=== PATIENT | male | born 1945 | race Hispanic/Latino ===

== ENCOUNTER 2017-11-07 16:48 | Observation (INO) | payer OTHER, MEDICARE ==
[2017-11-07 17:28] LABS: BASOPHILS % (AUTO) 1.4 % (0.0-5.0); EOSINOPHILS % (AUTO) 5.3 % (0.0-8.0); HEMATOCRIT 23.3 % (42-54); LYMPHOCYTES % (AUTO) 20.5 % (21.0-51.0); MEAN CORPUSCULAR HEMOGLOBIN 21.6 pg (27.0-33.0); MEAN CORPUSCULAR HGB CONC 31.1 g/dL (32.0-36.0); MEAN CORPUSCULAR VOLUME 69.5 fL (79-99); MONOCYTES % (AUTO) 10.2 % (3.0-13.0); NEUTROPHILS % (AUTO) 62.6 % (40.0-77.0); NUCLEATED RED BLOOD CELLS 0.1 % (0.0-0.19); PLATELET COUNT (AUTO) 25 K/uL (130-400); RED BLOOD CELL COUNT(AUTO) 3.36 MIL/uL (4.50-6.20); RED CELL DISTRIBUTION WIDTH 18.8 % (11.0-15.5); WHITE BLOOD COUNT (AUTO) 2.2 K/uL (4.8-10.8)
[2017-11-07 17:44] LABS: INR 1.06 (0.85-1.15); PARTIAL THROMBOPLASTIN TIME 22.5 SEC (26.3-35.5); PROTHROMBIN TIME 11.1 SEC (9.6-11.6)
[2017-11-07 17:45] LABS: ALBUMIN 2.9 g/dL (3.5-5.0); BILIRUBIN,TOTAL 0.4 mg/dL (0.2-1.0); CREATININE 1.6 mg/dL (0.5-1.5); TOTAL PROTEIN, SERUM 7.9 g/dL (6.0-8.3)
[2017-11-07 17:47] LABS: POTASSIUM 6.1 mmol/L (3.5-5.1)
[2017-11-07 18:21] LABS: BAND NEUTROPHILS % (MANUAL) 1 % (0-2); BASOPHILS % (MANUAL) 1 % (0-2); EOSINOPHILS % (MANUAL) 5 % (1-6); LYMPHOCYTES % (MANUAL) 22 % (22-44); MAN.DIFF COMMENT-IMPRESSION MANUAL DIFFERENTIAL; MONOCYTES % (MANUAL) 10 % (2-9); SEGMENTED NEUTROPHILS % 61 % (40-70)
[2017-11-07 18:22] LABS: PLATELET MORPHOLOGY COMMENT PLT CLUMPS PRESENT
[2017-11-07] MEDS ORDERED: SODIUM POLYSTYRENE SULFONATE 15 GM/60 ML ML ONE (18:31)
[2017-11-07] MEDS ORDERED: CALCIUM GLUCONATE 1 GM/10 ML VIAL IV ONE (18:31)
[2017-11-07] MEDS ORDERED: INSULIN HUMULIN R 100 UNIT/ML 3ML ONE (18:32)
[2017-11-07] MEDS ORDERED: SODIUM CHLORIDE 0.9% 50 ML IV ONE (18:34)
[2017-11-07 21:00] VITALS: BP 148/89
[2017-11-07 21:05] VITALS: BP 148/89
[2017-11-07] MEDS ORDERED: HYDRALAZINE HCL 20 MG/ML VIAL IV PRN (23:15)
[2017-11-07] MEDS ORDERED: LACTULOSE 20 GM/30 ML UDCUP PO PRN (23:15)
[2017-11-07] MEDS ORDERED: ONDANSETRON HCL 4 MG/2 ML VIAL IV PRN (23:15)
[2017-11-07 23:20] VITALS: BP 162/96
[2017-11-08 00:02] VITALS: BP 154/96
[2017-11-08] MEDS ORDERED: SODIUM POLYSTYRENE SULFONATE 15 GM/60 ML ML PO SCH (00:30)
[2017-11-08] MEDS ORDERED: SODIUM POLYSTYRENE SULFONATE 15 GM/60 ML ML ONE (00:37)
[2017-11-08 03:45] VITALS: BP 139/74
[2017-11-08 04:01] LABS: HEMATOCRIT 22.1 % (42-54); MEAN CORPUSCULAR HEMOGLOBIN 22.3 pg (27.0-33.0); MEAN CORPUSCULAR VOLUME 69.7 fL (79-99); PLATELET COUNT (AUTO) 24 K/uL (130-400); RED BLOOD CELL COUNT(AUTO) 3.17 MIL/uL (4.50-6.20); RED CELL DISTRIBUTION WIDTH 18.9 % (11.0-15.5)
[2017-11-08 04:10] LABS: CREATININE 1.4 mg/dL (0.5-1.5); POTASSIUM 4.8 mmol/L (3.5-5.1)
[2017-11-08 07:29] LABS: HEMATOCRIT 21.8 % (42-54); MEAN CORPUSCULAR HEMOGLOBIN 22.2 pg (27.0-33.0); MEAN CORPUSCULAR HGB CONC 31.7 g/dL (32.0-36.0); NUCLEATED RED BLOOD CELLS 0.1 % (0.0-0.19); RED BLOOD CELL COUNT(AUTO) 3.12 MIL/uL (4.50-6.20); WHITE BLOOD COUNT (AUTO) 2.1 K/uL (4.8-10.8)
[2017-11-08] MEDS ORDERED: INSULIN HUMULIN R 100 UNIT/ML 3ML SQ SCH (07:30)
[2017-11-08] MEDS ORDERED: COMPOUND IV MISC 1 EACH IVSOLN MISC PRN (08:00)
[2017-11-08 08:11] VITALS: BP 145/96
[2017-11-08] MEDS ORDERED: LACTULOSE 20 GM/30 ML UDCUP PO SCH (08:30)
[2017-11-08] MEDS ORDERED: FLUT16H NASAL (08:34)
[2017-11-08] MEDS ORDERED: FOLI1TAB15 PO (08:34)
[2017-11-08] MEDS ORDERED: IRON150C5 PO (08:34)
[2017-11-08] MEDS ORDERED: PROP20TA7 PO (08:34)
[2017-11-08] MEDS ORDERED: PANT40TA25 PO (08:34)
[2017-11-08] MEDS ORDERED: LINA1TAB5 PO (08:34)
[2017-11-08] MEDS ORDERED: LACT10SO32 PO (08:34)
[2017-11-08] MEDS ORDERED: FURO20TA4 PO (08:34)
[2017-11-08] MEDS ORDERED: IPRA3AMP4 IH (08:34)
[2017-11-08 08:56] LABS: PLATELET COUNT (AUTO) 60 K/uL (130-400)
[2017-11-08] MEDS ORDERED: FOLIC ACID 1 MG TABLET PO SCH (09:00)
[2017-11-08] MEDS ORDERED: LINAGLIPTIN 5 MG TABLET PO SCH (09:00)
[2017-11-08] MEDS ORDERED: PROPRANOLOL HCL 20 MG TAB PO SCH (09:00)
[2017-11-08] MEDS ORDERED: IRON SUCROSE COMPLEX 100 MG in SODIUM CHLORIDE 0.9% 50 ML IV SCH (09:00)
[2017-11-08] MEDS ORDERED: PANTOPRAZOLE SODIUM 40 MG TABLET.DR PO SCH ×2 (09:00)
[2017-11-08] MEDS ORDERED: FLUTICASONE PROPIONATE 50MCG/SPRAY 16 GM BOTTLE NS SCH (09:00)
[2017-11-08] MEDS ORDERED: IRON POLYSACCHARIDES COMPLEX 150 MG CAPSULE PO SCH (09:00)
[2017-11-08] MEDS ORDERED: FUROSEMIDE 20 MG TABLET PO SCH (09:00)
[2017-11-08] MEDS ORDERED: METFORMIN HCL 500 MG TABLET PO SCH (09:00)
[2017-11-08] MEDS ORDERED: SODIUM CHLORIDE 0.9% 250 ML IV ONE (11:45)
[2017-12-31] MEDS ORDERED: FURO20TA4 PO (12:43)
== END 2017-11-08 16:30 | disposition home or self-care (01) ==
LOC: EDH 16:48 → EDHIP 18:50 → 3AH 21:04
PROVIDERS: ADMIT Internal Medicine; ATTEND Internal Medicine
DX: E87.5 Hyperkalemia (principal); E78.5 Hyperlipidemia, unspecified; K74.60 Unspecified cirrhosis of liver; D69.6 Thrombocytopenia, unspecified; D61.818 Other pancytopenia; I12.9 Hypertensive chronic kidney disease with stage 1 through stage 4 chronic kidney disease, or unspecified chronic kidney disease; E11.22 Type 2 diabetes mellitus with diabetic chronic kidney disease; N18.9 Chronic kidney disease, unspecified; H54.8 Legal blindness, as defined in USA
CPT/HCPCS: 36415 ×2; 36430; 80048; 80053; 82948 ×4; 84132; 85007; 85025; 85027 ×2; 85610; 85730; 86850; 86900; 86901; 86922; 93005; 96374; 99285; G0378 ×22; J0610; J1756; J1815; J7030; P9016

== ENCOUNTER 2017-12-09 05:58 | Day surgery (SDC) | payer OTHER, MEDICARE ==
[~2017-12-09] VITALS: Ht 170.2 cm; Wt 104.4 kg
[~2017-12-09 05:58] MED LIST: FLUT16H NASAL; FOLI1TAB15 PO; IPRA3AMP24 IH; IRON150C5 PO; LACT10SO32 PO; LINA1TAB5 PO; PANT40TA25 PO; PROP20TA7 PO
[2017-12-09 06:03] VITALS: BP 147/77
[2017-12-09] MEDS ORDERED: SODIUM CHLORIDE 0.9% 1000ML 1,000 ML IV ONE (06:46)
[2017-12-09] MEDS ORDERED: LIDOCAINE HCL 2% 20ML ONE (07:32)
[2017-12-09] MEDS ORDERED: GLYCOPYRROLATE 0.2 MG/ML 5 ML VIAL ONE (07:32)
[2017-12-09] MEDS ORDERED: FENTANYL CITRATE PF 50 MCG/1 ML 2ML VIAL ONE (07:32)
[2017-12-09] MEDS ORDERED: PROPOFOL 10 MG/ML 20ML VIAL IV ONE ×2 (07:32→08:27)
[2017-12-09 07:45] LABS: BASOPHILS % (AUTO) 1.1 % (0.0-5.0); HEMATOCRIT 23.7 % (42-54); LYMPHOCYTES % (AUTO) 21.6 % (21.0-51.0); MEAN CORPUSCULAR HEMOGLOBIN 22.8 pg (27.0-33.0); MEAN CORPUSCULAR HGB CONC 31.3 g/dL (32.0-36.0); MEAN CORPUSCULAR VOLUME 72.9 fL (79-99); MONOCYTES % (AUTO) 11.8 % (3.0-13.0); NEUTROPHILS % (AUTO) 58.5 % (40.0-77.0); PLATELET COUNT (AUTO) 43 K/uL (130-400); RED BLOOD CELL COUNT(AUTO) 3.25 MIL/uL (4.50-6.20); RED CELL DISTRIBUTION WIDTH 21.4 % (11.0-15.5)
[2017-12-09] MEDS ORDERED: PHENYLEPHRINE HCL 10 MG/ML 1ML VIAL IV ONE (08:41)
[2017-12-09 08:47] VITALS: BP 99/49
[2017-12-31] MEDS ORDERED: FURO20TA4 PO (12:43)
== END 2017-12-09 09:25 | disposition home or self-care (01) ==
LOC: ENDO 05:58 → DAH 05:58 → ENDO 09:25
PROVIDERS: ATTEND Internal Medicine Gastroenterology
DX: Z09 Encounter for follow-up examination after completed treatment for conditions other than malignant neoplasm (principal); K57.30 Diverticulosis of large intestine without perforation or abscess without bleeding; D64.89 Other specified anemias; D69.6 Thrombocytopenia, unspecified; N28.9 Disorder of kidney and ureter, unspecified; E11.9 Type 2 diabetes mellitus without complications; Z86.010 Personal history of colon polyps; Z87.19 Personal history of other diseases of the digestive system; Z68.41 Body mass index [BMI] 40.0-44.9, adult
CPT/HCPCS: 45378; 36415; 82948 ×2; 85025; 93005; A4606; J2370; J2704 ×2; J3010; J3490 ×2; J7030

== ENCOUNTER 2018-01-01 06:40 | Day surgery (SDC) | payer OTHER, MEDICARE ==
[~2018-01-01] VITALS: Ht 170.2 cm; Wt 107.4 kg
[~2018-01-01 06:40] MED LIST changes: +FURO20TA4 PO
[2018-01-01 07:10] VITALS: BP 143/81
[2018-01-01] MEDS ORDERED: SODIUM CHLORIDE 0.9% 1000ML 1,000 ML IV ONE (07:36)
[2018-01-01 08:08] VITALS: BP 115/57
== END 2018-01-01 08:50 | disposition home or self-care (01) ==
LOC: ENDO 06:40 → DAH 06:40 → ENDO 08:50
PROVIDERS: ATTEND Internal Medicine Gastroenterology
DX: I85.00 Esophageal varices without bleeding (principal); K76.6 Portal hypertension; K31.89 Other diseases of stomach and duodenum; D50.9 Iron deficiency anemia, unspecified; Z68.41 Body mass index [BMI] 40.0-44.9, adult; K70.30 Alcoholic cirrhosis of liver without ascites; Z85.038 Personal history of other malignant neoplasm of large intestine; E11.22 Type 2 diabetes mellitus with diabetic chronic kidney disease; E11.39 Type 2 diabetes mellitus with other diabetic ophthalmic complication; N18.9 Chronic kidney disease, unspecified; H40.9 Unspecified glaucoma; Z79.899 Other long term (current) drug therapy; Z79.84 Long term (current) use of oral hypoglycemic drugs
CPT/HCPCS: 43235; 82948 ×2; A4606; J7030

== ENCOUNTER 2020-08-06 14:14 | Inpatient (IN) | payer OTHER, MEDICARE ==
[~2020-08-06] VITALS: Ht 167.6 cm; Wt 95.4 kg
[~2020-08-06 14:14] MED LIST changes: -PANT40TA25 PO; +PANT40TA54 PO
[2020-08-06 15:06] LABS: BASOPHILS % (AUTO) 0.4 % (0.0-5.0); EOSINOPHILS % (AUTO) 8.1 % (0.0-8.0); LYMPHOCYTES % (AUTO) 14.5 % (21.0-51.0); MEAN CORPUSCULAR HEMOGLOBIN 25.2 pg (27.0-33.0); MEAN CORPUSCULAR HGB CONC 29.8 g/dL (32.0-36.0); MEAN CORPUSCULAR VOLUME 84.8 fL (79-99); MONOCYTES % (AUTO) 11.9 % (3.0-13.0); NEUTROPHILS % (AUTO) 64.7 % (40.0-77.0); PLATELET COUNT (AUTO) 75 K/uL (130-400); RED CELL DISTRIBUTION WIDTH 18.3 % (11.0-15.5); WHITE BLOOD COUNT (AUTO) 2.4 K/uL (4.8-10.8)
[2020-08-06 15:13] LABS: HEMATOCRIT 17.8 % (42-54)
[2020-08-06 15:14] LABS: CARBON DIOXIDE 18 mmol/L (21-32); CHLORIDE 114 mmol/L (101-111); CREATININE 2.8 mg/dL (0.5-1.5); GLOMERULAR FILTR. RATE CALC 24 mL/min (>60); GLUCOSE,RANDOM 162 mg/dL (70-105); POTASSIUM 5.5 mmol/L (3.5-5.1); SODIUM SERUM 143 mmol/L (136-145); UREA NITROGEN, BLOOD 31 mg/dL (7-18)
[2020-08-06 15:15] LABS: INR 1.07 (0.85-1.15); PARTIAL THROMBOPLASTIN TIME 25.4 SEC (26.3-35.5); PROTHROMBIN TIME 11.5 SEC (9.6-11.6)
[2020-08-06 15:19] LABS: ALANINE AMINOTRANSFERASE 14 U/L (12-78); ALBUMIN 2.9 g/dL (3.5-5.0); ALCOHOL, BLOOD < 3 mg/dL (0-10); ASPARTATE AMINOTRANSFERASE 25 U/L (10-37); BILIRUBIN,TOTAL 0.6 mg/dL (0.2-1.0); TOTAL PROTEIN, SERUM 7.6 g/dL (6.0-8.3)
[2020-08-06 15:28] LABS: B-TYPE NATRIURETIC PEPTIDE 377 pg/mL (0-100)
[2020-08-06 15:43] LABS: BAND NEUTROPHILS % (MANUAL) 5 % (0-2); EOSINOPHILS % (MANUAL) 6 % (1-6); LYMPHOCYTES % (MANUAL) 13 % (22-44); MONOCYTES % (MANUAL) 1 % (2-9); REACTIVE LYMPHOCYTES 1 % (0-0); SEGMENTED NEUTROPHILS % 74 % (40-70)
[2020-08-06 15:44] LABS: MAN.DIFF COMMENT-IMPRESSION MANUAL DIFFERENTIAL
[2020-08-06] MEDS ORDERED: ACETAMINOPHEN 325 MG TAB PO PRN (16:00)
[2020-08-06] MEDS ORDERED: ACETAMINOPHEN 650 MG SUPPOSITORY RC PRN (16:00)
[2020-08-06] MEDS ORDERED: LACTULOSE 20 GM/30 ML UDCUP PO PRN (16:00)
[2020-08-06 16:54] LABS: APPEARANCE,URINE Clear (CLEAR); BILIRUBIN,URINE Negative (NEGATIVE); COLOR,URINE Yellow (YELLOW); GLUCOSE, URINE (UA) Negative (NEGATIVE); KETONES,URINE Negative (NEGATIVE); LEUKOCYTE ESTERASE ,URINE Trace (NEGATIVE); NITRATE,URINE Negative (NEGATIVE); OCCULT BLOOD,URINE Negative (NEGATIVE); PROTEIN,URINE POS 2+ mg/dL (NEGATIVE)
[2020-08-06] MEDS: CEFTRIAXONE SODIUM 1 GM IVP SCH (17:00)
[2020-08-06 17:02] LABS: AMPHET/METH SCREEN,URINE NEGATIVE (NEGATIVE); BARBITURATE SCREEN, URINE NEGATIVE (NEGATIVE); BENZODIAZEPINES SCREEN,URINE NEGATIVE (NEGATIVE); CANNABINOID SCREEN,URINE NEGATIVE (NEGATIVE); COCAINE SCREEN,URINE NEGATIVE (NEGATIVE); OPIATE SCREEN,URINE NEGATIVE (NEGATIVE); PHENCYCLIDINE SCREEN,URINE NEGATIVE (NEGATIVE)
[2020-08-06 17:04] LABS: RBC,URINE 0-1 /HPF (0-1)
[2020-08-06 17:05] LABS: BACTERIA,URINE Rare /HPF (None Seen); SQUAMOUS EPITHELIAL CELL,UR Few /HPF (0-2)
[2020-08-06 17:48] LABS: HEMATOCRIT 17.6 % (42-54)
[2020-08-06 18:02] LABS: CREATINE KINASE, TOTAL 72 U/L (21-232); MYOGLOBIN 181 ng/mL (10-92); TROPONIN I < 0.04 ng/mL (0.00-0.06)
[2020-08-06 18:03] LABS: AMMONIA 108 umol/L (11-32)
[2020-08-06] MEDS: LACTULOSE 20 GM/30 ML UDCUP PO SCH (19:15)
[2020-08-06] MEDS ORDERED: MORPHINE SULFATE 2 MG/ML 1ML SYG ONE (19:37)
[2020-08-06 20:00] VITALS: BP 130/64
[2020-08-06] MEDS: SODIUM CHLORIDE 0.9% 1000ML 1,000 ML IV SCH (21:08)
[2020-08-06] MEDS ORDERED: SODIUM POLYSTYRENE SULFONATE 15 GM/60 ML ML PO SCH (21:55)
[2020-08-06 22:05] LABS: HEMATOCRIT 15.2 % (42-54)
[2020-08-06 22:14] LABS: CREATINE KINASE, TOTAL 62 U/L (21-232); MYOGLOBIN 210 ng/mL (10-92); TROPONIN I < 0.04 ng/mL (0.00-0.06)
[2020-08-06] MEDS ORDERED: PANTOPRAZOLE SODIUM 80 MG in SODIUM CHLORIDE 0.9% 100 ML IVP SCH (23:00)
[2020-08-06] MEDS ORDERED: PANT40TA PO (23:01)
[2020-08-06] MEDS ORDERED: ONDANSETRON HCL 4 MG/2 ML VIAL IVP PRN (23:15)
[2020-08-07] VITALS (12 sets, daily range): BP systolic 130–167; BP diastolic 31–90
[2020-08-07] MEDS: MORPHINE SULFATE 2 MG/ML 1ML SYG IVP PRN ×2 (00:13→03:46)
[2020-08-07] MEDS: LACTULOSE 20 GM/30 ML UDCUP PO SCH ×4 (00:13→20:44)
[2020-08-07] MEDS ORDERED: FUROSEMIDE 10 MG/ML 4ML VIAL IV SCH (02:00)
[2020-08-07] MEDS ORDERED: FUROSEMIDE 10 MG/ML 4ML VIAL ONE (03:44)
[2020-08-07] MEDS: SODIUM CHLORIDE 0.9% 1000ML 1,000 ML IV SCH ×2 (03:47→22:52)
[2020-08-07 05:29] LABS: MEAN CORPUSCULAR HGB CONC 32.7 g/dL (32.0-36.0); MEAN CORPUSCULAR VOLUME 85.6 fL (79-99); PLATELET COUNT (AUTO) 58 K/uL (130-400); RED BLOOD CELL COUNT(AUTO) 2.43 MIL/uL (4.50-6.20); RED CELL DISTRIBUTION WIDTH 17.2 % (11.0-15.5)
[2020-08-07 05:40] LABS: INR 1.09 (0.85-1.15); PROTHROMBIN TIME 11.7 SEC (9.6-11.6)
[2020-08-07 05:43] LABS: CARBON DIOXIDE 17 mmol/L (21-32); CHLORIDE 115 mmol/L (101-111); CREATINE KINASE, TOTAL 93 U/L (21-232); CREATININE 2.7 mg/dL (0.5-1.5); GLOMERULAR FILTR. RATE CALC 25 mL/min (>60); GLUCOSE,RANDOM 131 mg/dL (70-105); MYOGLOBIN 232 ng/mL (10-92); PHOSPHORUS 3.8 mg/dL (2.5-4.9); POTASSIUM 5.1 mmol/L (3.5-5.1); SODIUM SERUM 145 mmol/L (136-145); TROPONIN I < 0.04 ng/mL (0.00-0.06); UREA NITROGEN, BLOOD 31 mg/dL (7-18)
[2020-08-07 05:50] LABS: HEMATOCRIT 20.8 % (42-54)
[2020-08-07 06:07] LABS: AMMONIA 103 umol/L (11-32)
[2020-08-07 06:19] LABS: % IRON SATURATION 20.8 % (30-44)
[2020-08-07] MEDS: OCTREOTIDE ACETATE 1,250 MCG in SODIUM CHLORIDE 0.9% 250 ML IV SCH (09:28)
[2020-08-07] MEDS ORDERED: COMPOUND IV REFRIGERATED 1 EACH IVSOLN MISC PRN (09:30)
[2020-08-07] MEDS ORDERED: COMPOUND IV MISC 1 EACH IVSOLN MISC PRN (09:30)
[2020-08-07] MEDS ORDERED: ALBUMIN (HUMAN) 25% 100 ML IV PRN (10:15)
--- NOTE | 2020-08-07 11:08 | NUR ---
DC PLAN VISITED WITH PATIENT. PATIENT CONFUSED. BREATH SOUND AUDIBLE. DAUGHTER AT BEDSIDE ANSWERED QUESTIONS. PATIENT LIVES ALONE. DOES HAVE HELP AT HOME. SHE VISITS AND PATIENT HAS PROVIDER 4 1/2 HRS. 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 NURSE NOT AVAILABLE LET CONCERT OR LECTURE HALL MANAGER KNOW FOR SIGN. PER DAUGHTER FEELS PATIENT WOULD BE SAFE TO DISCHARGE HOME. Addendum: 08/07/20 at 1113 by MONA MACIAS RN CM Amended: Links added.
--- NOTE | 2020-08-07 12:25 | NUR ---
U/S GD PARACENTESIS PROCEDURE PERFORMED BY DR Paulo COLEMAN. PUNCTURE SITE RLQ AND PATIENT TOLERATED PROCEDURE WELL. TOTAL REMOVED 5.2 LITERS OF CLOUDY YELLOW FLUID. END OF PROCEDURE AT 1215. CATHETER REMOVED AND DRESSING APPLIED. NO BLEEDING NOTED. REPORT GIVEN TO Paulo GAN RN AND PATIENT TRANSPORTED TO [facility] VIA BED AT 1230. AAO X3 WITH NO C/O PAIN. SPECIMEN SENT TO LAB. ALBUMIN 25% ORDERED PER [facility] PROTOCOL.
[2020-08-07] MEDS: FUROSEMIDE 10 MG/ML 2ML VIAL IV SCH ×2 (12:45→20:44)
[2020-08-07] MEDS ORDERED: PHARMACY COMMUNICATION MISC SCH (12:45)
--- NOTE | 2020-08-07 13:31 | NUR ---
DR. VARSHA DAWN MD PLANS FOR NO SURGERY AT THIS TIME DUE TO PATIENTS CURRENT MEDICAL STATUS
[2020-08-07 13:34] LABS: APPEARANCE BODY FLUID CLEAR (CLEAR); BODY FLUID WBC 367 /cu. mm.; COLOR,BODY FLUID YELLOW (LT YELLOW); SPECIMENTYPE,BODY FLUID ASCITES; TOTAL VOLUME,BODY FLUID 5200 mL
[2020-08-07 13:35] LABS: BODY FLUID RBC 825 /cu. mm.
[2020-08-07 13:53] LABS: BF LYMPHOCYTE 15 %; BF MESOTHELIAL 72 %; BF MONOCYTE 12 %
[2020-08-07] MEDS ORDERED: ALBUMIN (HUMAN) 25% 200 ML IV ONE (14:00)
[2020-08-07] MEDS ORDERED: THIAMINE HCL 100 MG/ML 2ML VIAL IVP SCH (14:00)
--- NOTE | 2020-08-07 14:45 | NUR ---
DR. BARKER ROUNDING ON PATIENT
--- NOTE | 2020-08-07 15:30 | NUR ---
ALBUMIN ASKED Edward TURNER NP IF ALBUMIN 25% 200ml ORDERED BY RADIOLOGIST POST-PARACENTESIS WOULD BE INDICATION SINCE PATIENT WILL RECEIVE TOTAL OF 4 UNITS OF PRBCS SINCE YESTERDAY. AWAITING REPLY.
--- NOTE | 2020-08-07 15:45 | NUR ---
REPAGED DR. OKEEFE
--- NOTE | 2020-08-07 16:08 | NUR ---
REPAGED DR. DAVID BLANCHARD STATED HE WAS ON HIS WAY TO SEE PATIENT
[2020-08-07] MEDS: PHARMACY COMMUNICATION MISC SCH (17:00)
[2020-08-07] MEDS: CEFTRIAXONE SODIUM 1 GM IVP SCH (17:06)
[2020-08-07] MEDS: FAMOTIDINE/PF 20 MG/2 ML VIAL IV SCH (20:44)
[2020-08-07 23:09] LABS: HEMATOCRIT 24.3 % (42-54)
--- NOTE | 2020-08-07 23:23 | NUR ---
SPOKE WITH NANCY PATEL HARDENING MACHINE OPERATOR, UPDATED ON NEW ORDERS FOR FFP TRANSFUSION PER YESY LOZA HARDENING MACHINE OPERATOR. INFORMED HER LAB IS REQUIRING CLARIFICATION D/T PATIENT'S CURRENT LABS. NEW ORDERS RECEIVED TO HOLD TRANSFUSION FOR NOW AND ORDER CBC WITH MANUAL DIFF FOR AM. ORDERS TO BE CARRIED OUT.
--- NOTE | 2020-08-07 23:25 | NUR ---
LAST H/H 7.8/24.3, PER STANDING ORDERS, PATIENT TO RECEIVE 1 UNIT OF PRBC IF HGB < 8.
[2020-08-07] MEDS ORDERED: SODIUM CHLORIDE 0.9% 250 ML IV ONE (23:53)
[2020-08-08] MEDS: MORPHINE SULFATE 2 MG/ML 1ML SYG IVP PRN ×2 (00:48→18:10)
[2020-08-08] MEDS: LACTULOSE 20 GM/30 ML UDCUP PO SCH ×5 (01:15→20:41)
[2020-08-08] MEDS: ENALAPRILAT DIHYDRATE 1.25MG/ML 1ML VIAL IV PRN ×2 (03:13→11:30)
--- NOTE | 2020-08-08 03:18 | NUR ---
1 UNIT OF PRBC COMPLETE WITH NO ADVERSE REACTIONS NOTED. BP ELEVATED AT 191/86, PRN ENALAPRIL ADMINISTERED. WILL CONT TO MONITOR CLOSELY. PATIENT REMAINS ASLEEP AFTER ADMINISTRATION OF MORPHINE 2 MG IVP FOR C/O PAIN TO LEFT ARM FRACTURE.
[2020-08-08 03:58] VITALS: BP 169/89
[2020-08-08 05:18] LABS: BASOPHILS % (AUTO) 0.7 % (0.0-5.0); LYMPHOCYTES % (AUTO) 11.4 % (21.0-51.0); MEAN CORPUSCULAR HEMOGLOBIN 28.5 pg (27.0-33.0); MEAN CORPUSCULAR HGB CONC 33.1 g/dL (32.0-36.0); MEAN CORPUSCULAR VOLUME 86.1 fL (79-99); MONOCYTES % (AUTO) 10.3 % (3.0-13.0); NEUTROPHILS % (AUTO) 73.2 % (40.0-77.0); PLATELET COUNT (AUTO) 54 K/uL (130-400); RED BLOOD CELL COUNT(AUTO) 3.02 MIL/uL (4.50-6.20); RED CELL DISTRIBUTION WIDTH 16.5 % (11.0-15.5); WHITE BLOOD COUNT (AUTO) 2.7 K/uL (4.8-10.8)
[2020-08-08 05:34] LABS: CREATININE 2.7 mg/dL (0.5-1.5); INR 1.15 (0.85-1.15); PROTHROMBIN TIME 12.4 SEC (9.6-11.6)
[2020-08-08 08:13] VITALS: BP 143/72
[2020-08-08] MEDS ORDERED: THIAMINE HCL 100 MG/ML 2ML VIAL IVP SCH (09:00)
[2020-08-08] MEDS ORDERED: M.V.I. IV [ADULT] 10 ML, FOLIC ACID 1 MG, THIAMINE HCL 100 MG in SODIUM CHLORIDE 0.9% 1... IV SCH (09:00)
[2020-08-08] MEDS: FUROSEMIDE 10 MG/ML 2ML VIAL IV SCH ×2 (09:40→20:42)
[2020-08-08] MEDS: PHARMACY COMMUNICATION MISC SCH (09:45)
[2020-08-08] MEDS ORDERED: PHARMACY COMMUNICATION MISC SCH (10:45)
[2020-08-08] MEDS: SODIUM CHLORIDE 0.9% IV SCH (11:23)
[2020-08-08] MEDS: FOLIC ACID IV SCH (11:23)
[2020-08-08] MEDS: THIAMINE HCL IV SCH (11:23)
[2020-08-08] MEDS: MULTIVITAMIN TABLET PO SCH (11:23)
[2020-08-08 11:35] VITALS: BP 185/97
[2020-08-08 16:33] VITALS: BP 156/87
[2020-08-08] MEDS: CEFTRIAXONE SODIUM 1 GM IVP SCH (16:51)
[2020-08-08 18:51] LABS: HEMATOCRIT 26.7 % (42-54)
[2020-08-08] MEDS: SODIUM CHLORIDE 0.9% 1000ML 1,000 ML IV SCH (18:52)
[2020-08-08 19:53] VITALS: BP 168/84
[2020-08-08] MEDS: RIFAXIMIN 200 MG TABLET PO SCH (20:41)
[2020-08-08] MEDS: FAMOTIDINE/PF 20 MG/2 ML VIAL IV SCH (20:42)
[2020-08-08] MEDS: MORPHINE SULFATE 4 MG/1ML SYG IVP PRN (22:31)
[2020-08-09] VITALS (24 sets, daily range): BP systolic 111–182; BP diastolic 55–113
[2020-08-09] MEDS: PHARMACY COMMUNICATION MISC SCH ×3 (01:00→17:00)
[2020-08-09] MEDS: LACTULOSE 20 GM/30 ML UDCUP PO SCH ×6 (01:15→18:02)
[2020-08-09 05:54] LABS: BASOPHILS % (AUTO) 0.6 % (0.0-5.0); EOSINOPHILS % (AUTO) 5.9 % (0.0-8.0); HEMATOCRIT 27.3 % (42-54); LYMPHOCYTES % (AUTO) 10.3 % (21.0-51.0); MEAN CORPUSCULAR HEMOGLOBIN 27.7 pg (27.0-33.0); MEAN CORPUSCULAR HGB CONC 31.9 g/dL (32.0-36.0); MEAN CORPUSCULAR VOLUME 86.9 fL (79-99); MONOCYTES % (AUTO) 13.2 % (3.0-13.0); NEUTROPHILS % (AUTO) 69.7 % (40.0-77.0); PLATELET COUNT (AUTO) 31 K/uL (130-400); RED BLOOD CELL COUNT(AUTO) 3.14 MIL/uL (4.50-6.20); RED CELL DISTRIBUTION WIDTH 16.6 % (11.0-15.5); WHITE BLOOD COUNT (AUTO) 3.4 K/uL (4.8-10.8)
[2020-08-09 06:09] LABS: ALBUMIN 2.6 g/dL (3.5-5.0); BILIRUBIN,DIRECT 0.4 mg/dL (0.0-0.3); BILIRUBIN,TOTAL 0.9 mg/dL (0.2-1.0); CREATININE 2.7 mg/dL (0.5-1.5); MAGNESIUM 1.6 mg/dL (1.80-2.40); PHOSPHORUS 4.1 mg/dL (2.5-4.9)
[2020-08-09 06:20] LABS: POTASSIUM 3.8 mmol/L (3.5-5.1)
[2020-08-09] MEDS: RIFAXIMIN 200 MG TABLET PO SCH ×3 (09:00→21:42)
[2020-08-09] MEDS: FUROSEMIDE 10 MG/ML 2ML VIAL IV SCH ×2 (10:10→21:42)
[2020-08-09] MEDS ORDERED: PROPOFOL 10 MG/ML 20ML VIAL IV ONE ×2 (11:40→11:53)
[2020-08-09] MEDS ORDERED: SUCCINYLCHOLINE 200MG/10ML SYR ONE (11:40)
[2020-08-09] MEDS ORDERED: LIDOCAINE HCL 1% 20 ML VIAL ONE (11:40)
[2020-08-09] MEDS ORDERED: ATROPINE SULFATE 0.1 MG/ML 10 ML SYG IVP ONE (11:41)
[2020-08-09] MEDS ORDERED: GLYCOPYRROLATE 1 MG/5 ML SYRINGE ONE (11:41)
--- NOTE | 2020-08-09 12:07 | NUR ---
CM NOTE/DCP [facility] MET WITH PATIENT AND SIBLING, PAULINA, AT BEDSIDE REGARDING ORDER HH VS SNF. PER SIBLING, PATIENT PENDING ORTHOPEDIC SURGERY AND WANTS HIM TO GO TO SNF FOR PT AFTER, PATIENT AGREES. PER PATIENT, HAS BEEN AT [facility] BEFORE AND WOULD LIKE TO RETURN. JEFFRY COMPLETED FOR [facility]. WILL SEND CLINICAL PACKET AFTER SURGERY COMPLETED AND PT EVALUATION DONE. CM TO FOLLOW UP. PRIMARY NURSE, JEANE CHAMOROR, AWARE OF DCP.
[2020-08-09] MEDS: MAGNESIUM 2GM PREMIX 50ML 50 ML IV SCH (13:07)
[2020-08-09] MEDS: MULTIVITAMIN TABLET PO SCH (13:07)
[2020-08-09] MEDS: SODIUM CHLORIDE 0.9% 1000ML 1,000 ML IV SCH (14:52)
[2020-08-09] MEDS ORDERED: MAGNESIUM CITRATE 296 ML SOLUTION PO SCH (15:00)
[2020-08-09] MEDS ORDERED: PEG 3350/NA SULF,BICARB,CL/KCL 4000 ML SOLN PO SCH (16:00)
[2020-08-09] MEDS: CEFTRIAXONE SODIUM 1 GM IVP SCH (17:06)
[2020-08-09] MEDS: OCTREOTIDE ACETATE 1,250 MCG in SODIUM CHLORIDE 0.9% 250 ML IV SCH (18:04)
--- NOTE | 2020-08-09 19:36 | NUR ---
PATIENT RECEIVED IN BED, AGITATED AND TRYING TO GET OUT OF BED. PATIENT IS WEAK TO BLE, HAS A LEFT HUMERUS FRACTURE AND IS AT HIGH RISK FOR FALLS AND INJURY. POC INVOLVES COLONOSCOPY FOR TOMORROW WIT DR. OKEEFE. GI PREP HAS BEEN INITIATED AND PATIENT IS VERY ANXIOUS STATING HE NEED TO GET UP AND GO TO THE BATHROOM. HE IS PULLING AT LINES AND IS AT HIGH RISK FOR INJURY. I PAGED SHARRI PARSONS CUSTOMER EQUIPMENT ENGINEER TO UPDATE AND OBTAIN ORDERS. WILL AWAIT CALL BACK.
[2020-08-09] MEDS ORDERED: TRAZODONE HCL 50 MG TAB PO ONE (20:15)
[2020-08-09] MEDS: FAMOTIDINE/PF 20 MG/2 ML VIAL IV SCH (21:42)
[2020-08-09] MEDS ORDERED: TRAZODONE HCL 50 MG TAB ONE (21:49)
[2020-08-09 21:51] LABS: HEMATOCRIT 25.8 % (42-54)
[2020-08-10] MEDS: PHARMACY COMMUNICATION MISC SCH ×3 (01:00→17:00)
[2020-08-10] MEDS: LACTULOSE 20 GM/30 ML UDCUP PO SCH ×4 (01:15→20:21)
--- NOTE | 2020-08-10 01:31 | NUR ---
PATIENT CONTINUES AGITATED, PULLING AT LINES AND REMOVING MITTENS. HE DID NOT COMPLETE THE GOLYTELY, STATING HE DOES NOT LIKE IT. PT IS NPO, TAB WATER ENEMA TO BE DONE.
[2020-08-10 04:21] LABS: BASOPHILS % (AUTO) 0.2 % (0.0-5.0); EOSINOPHILS % (AUTO) 3.5 % (0.0-8.0); HEMATOCRIT 24.9 % (42-54); LYMPHOCYTES % (AUTO) 7.7 % (21.0-51.0); MEAN CORPUSCULAR HEMOGLOBIN 28.7 pg (27.0-33.0); MEAN CORPUSCULAR HGB CONC 32.5 g/dL (32.0-36.0); MEAN CORPUSCULAR VOLUME 88.3 fL (79-99); NEUTROPHILS % (AUTO) 76.4 % (40.0-77.0); PLATELET COUNT (AUTO) 32 K/uL (130-400); RED BLOOD CELL COUNT(AUTO) 2.82 MIL/uL (4.50-6.20); RED CELL DISTRIBUTION WIDTH 16.7 % (11.0-15.5)
[2020-08-10 04:25] VITALS: BP 178/83
[2020-08-10 04:33] LABS: ALBUMIN 2.6 g/dL (3.5-5.0); BILIRUBIN,TOTAL 0.7 mg/dL (0.2-1.0); CREATININE 2.8 mg/dL (0.5-1.5); MAGNESIUM 1.5 mg/dL (1.80-2.40); PHOSPHORUS 4.3 mg/dL (2.5-4.9); POTASSIUM 3.6 mmol/L (3.5-5.1); TOTAL PROTEIN, SERUM 6.9 g/dL (6.0-8.3)
--- NOTE | 2020-08-10 05:27 | NUR ---
TAB WATER ENEMA ADMINISTERED, PT TOLERATED WELL. OUTPUT WAS YELLOW WITH SEDIMENT NOTED, NO FORMED STOOL NOTED.
[2020-08-10 08:00] VITALS: BP 128/74
--- NOTE | 2020-08-10 08:00 | NUR ---
AM SHIFT ASSESSMENT; SITTER AT SIDE, PT CONFUSED, TRYING TO CLIMB OUT OF BED. NPO FOR A [facility]. COLONOSCOPY TODAY. CONSENT SIGNED AND IN CHART
[2020-08-10] MEDS: FUROSEMIDE 10 MG/ML 2ML VIAL IV SCH ×2 (10:41→20:21)
[2020-08-10] MEDS: MULTIVITAMIN TABLET PO SCH (10:41)
[2020-08-10] MEDS: RIFAXIMIN 200 MG TABLET PO SCH ×3 (10:41→20:21)
[2020-08-10] MEDS: PANTOPRAZOLE SODIUM 40 MG TABLET.DR PO SCH (10:43)
[2020-08-10] MEDS: SODIUM CHLORIDE 0.9% 1000ML 1,000 ML IV SCH (10:52)
[2020-08-10 11:36] VITALS: BP 148/86
[2020-08-10] MEDS: THIAMINE HCL IV SCH (12:39)
[2020-08-10] MEDS: SODIUM CHLORIDE 0.9% IV SCH (12:39)
[2020-08-10] MEDS: FOLIC ACID IV SCH (12:39)
--- NOTE | 2020-08-10 13:00 | NUR ---
RETURNED FROM GI LAB, COLONOSCOPY ABORTED. PT. WAS NOT CLEAN. REPEAT PREP AND RESCHEDULE FOR AM.
--- NOTE | 2020-08-10 15:35 | NUR ---
CM NOTE/APS CALL RECEIVED FROM LANA LAM [phone]- Addendum: 08/10/20 at 1537 by SILVINA HINSON RN CM CM NOTE/APS CALL RECEIVED FROM LANA LAM [phone] STATING PATIENT HAS OPEN CASE. INFORMED DC PLAN. PER LANA, WILL FOLLOW UP AT LATER TIME.
[2020-08-10 16:00] VITALS: BP 156/77
[2020-08-10] MEDS ORDERED: MAGNESIUM CITRATE 296 ML SOLUTION PO SCH (17:00)
[2020-08-10] MEDS ORDERED: PEG 3350/NA SULF,BICARB,CL/KCL 4000 ML SOLN PO SCH (17:00)
[2020-08-10] MEDS: CEFTRIAXONE SODIUM 1 GM IVP SCH (17:12)
--- NOTE | 2020-08-10 18:04 | NUR ---
STARTED ON COLONOSCOPY PREP NOW.
[2020-08-10 19:42] VITALS: BP 135/72
[2020-08-10] MEDS: FAMOTIDINE/PF 20 MG/2 ML VIAL IV SCH (20:21)
[2020-08-10] MEDS: MORPHINE SULFATE 4 MG/1ML SYG IVP PRN ×2 (20:22→23:06)
[2020-08-10] MEDS ORDERED: LACTULOSE 20 GM/30 ML UDCUP PO SCH (21:00)
[2020-08-10 22:51] VITALS: BP 152/71
[2020-08-10] MEDS: MAGNESIUM 2GM PREMIX 50ML 50 ML IV SCH (23:13)
[2020-08-11] MEDS: PHARMACY COMMUNICATION MISC SCH ×3 (01:00→17:00)
[2020-08-11] MEDS: MORPHINE SULFATE 4 MG/1ML SYG IVP PRN (03:13)
[2020-08-11 04:00] VITALS: BP 168/98
[2020-08-11] MEDS: SODIUM CHLORIDE 0.9% 1000ML 1,000 ML IV SCH (06:26)
[2020-08-11] MEDS: PANTOPRAZOLE SODIUM 40 MG TABLET.DR PO SCH (07:30)
[2020-08-11 07:32] VITALS: BP 152/83
[2020-08-11] MEDS: RIFAXIMIN 200 MG TABLET PO SCH ×3 (09:00→21:40)
[2020-08-11] MEDS: LACTULOSE 20 GM/30 ML UDCUP PO SCH ×2 (09:00→21:40)
[2020-08-11 12:42] VITALS: BP 148/66
[2020-08-11] MEDS: MULTIVITAMIN TABLET PO SCH (15:00)
[2020-08-11] MEDS: FUROSEMIDE 10 MG/ML 2ML VIAL IV SCH ×2 (15:02→21:40)
[2020-08-11 15:44] VITALS: BP 141/80
[2020-08-11 19:39] VITALS: BP 140/70
[2020-08-11] MEDS: FAMOTIDINE/PF 20 MG/2 ML VIAL IV SCH (21:40)
[2020-08-11] MEDS: CEFTRIAXONE SODIUM 1 GM IVP SCH (21:41)
[2020-08-11 23:38] VITALS: BP 162/69
[2020-08-12] VITALS (25 sets, daily range): BP systolic 97–155; BP diastolic 45–88
[2020-08-12] MEDS: PHARMACY COMMUNICATION MISC SCH ×3 (01:00→17:00)
[2020-08-12] MEDS: SODIUM CHLORIDE 0.9% 1000ML 1,000 ML IV SCH ×2 (02:52→22:52)
[2020-08-12 05:47] LABS: BASOPHILS % (AUTO) 0.6 % (0.0-5.0); EOSINOPHILS % (AUTO) 9.7 % (0.0-8.0); HEMATOCRIT 26.7 % (42-54); MEAN CORPUSCULAR HEMOGLOBIN 27.3 pg (27.0-33.0); MEAN CORPUSCULAR HGB CONC 31.8 g/dL (32.0-36.0); MEAN CORPUSCULAR VOLUME 85.9 fL (79-99); NEUTROPHILS % (AUTO) 65.4 % (40.0-77.0); PLATELET COUNT (AUTO) 53 K/uL (130-400); RED BLOOD CELL COUNT(AUTO) 3.11 MIL/uL (4.50-6.20); RED CELL DISTRIBUTION WIDTH 17.3 % (11.0-15.5); WHITE BLOOD COUNT (AUTO) 3.1 K/uL (4.8-10.8)
[2020-08-12] MEDS: PANTOPRAZOLE SODIUM 40 MG TABLET.DR PO SCH ×2 (07:30→15:26)
[2020-08-12] MEDS: THIAMINE HCL IV SCH (09:00)
[2020-08-12] MEDS: [UNRECOGNIZED DRUG - OTHER] IV SCH (09:00)
[2020-08-12] MEDS: M V I IV SCH (09:00)
[2020-08-12] MEDS: FOLIC ACID IV SCH (09:00)
[2020-08-12] MEDS ORDERED: PROPOFOL 10 MG/ML 20ML VIAL IV ONE (13:14)
[2020-08-12] MEDS ORDERED: ALBUMIN (HUMAN) 25% 100 ML IV SCH (14:00)
[2020-08-12] MEDS ORDERED: PHARMACY COMMUNICATION MISC SCH (14:30)
[2020-08-12] MEDS: FUROSEMIDE 10 MG/ML 2ML VIAL IV SCH ×2 (15:24→22:10)
[2020-08-12] MEDS: LACTULOSE 20 GM/30 ML UDCUP PO SCH ×2 (15:24→22:10)
[2020-08-12] MEDS: MULTIVITAMIN TABLET PO SCH (15:25)
[2020-08-12] MEDS: RIFAXIMIN 200 MG TABLET PO SCH ×2 (15:30→22:31)
[2020-08-12] MEDS: CEFTRIAXONE SODIUM 1 GM IVP SCH (16:35)
[2020-08-12] MEDS ORDERED: ALBUMIN (HUMAN) 25% 200 ML IV SCH (19:30)
[2020-08-12] MEDS: FAMOTIDINE/PF 20 MG/2 ML VIAL IV SCH (22:10)
[2020-08-12] MEDS: HYDROCORTISONE 25 MG SUPPOSITORY PR SCH (22:10)
[2020-08-13] MEDS: PHARMACY COMMUNICATION MISC SCH ×3 (01:00→17:00)
[2020-08-13 04:00] VITALS: BP 168/88
[2020-08-13 06:29] LABS: HEMATOCRIT 24.8 % (42-54); MEAN CORPUSCULAR HEMOGLOBIN 28.6 pg (27.0-33.0); MEAN CORPUSCULAR HGB CONC 32.3 g/dL (32.0-36.0); MEAN CORPUSCULAR VOLUME 88.6 fL (79-99); PLATELET COUNT (AUTO) 49 K/uL (130-400); RED CELL DISTRIBUTION WIDTH 17.7 % (11.0-15.5); WHITE BLOOD COUNT (AUTO) 2.8 K/uL (4.8-10.8)
[2020-08-13 06:43] LABS: ALBUMIN 2.6 g/dL (3.5-5.0); BILIRUBIN,TOTAL 0.7 mg/dL (0.2-1.0); CREATININE 2.5 mg/dL (0.5-1.5); TOTAL PROTEIN, SERUM 6.6 g/dL (6.0-8.3)
[2020-08-13 06:48] LABS: POTASSIUM 2.8 mmol/L (3.5-5.1)
[2020-08-13] MEDS: PANTOPRAZOLE SODIUM 40 MG TABLET.DR PO SCH (07:30)
[2020-08-13 08:34] VITALS: BP 167/84
[2020-08-13 08:50] LABS: EOSINOPHILS % (MANUAL) 4 % (1-6); LYMPHOCYTES % (MANUAL) 4 % (22-44); MONOCYTES % (MANUAL) 12 % (2-9); REACTIVE LYMPHOCYTES 8 % (0-0); SEGMENTED NEUTROPHILS % 72 % (40-70)
[2020-08-13 08:51] LABS: PLATELET MORPHOLOGY COMMENT MARKED DECREASE
[2020-08-13] MEDS: [UNRECOGNIZED DRUG - OTHER] IV SCH (09:00)
[2020-08-13] MEDS: M V I IV SCH (09:00)
[2020-08-13] MEDS: OCTREOTIDE ACETATE 100 MCG/ML AMP SQ SCH (09:00)
[2020-08-13] MEDS: THIAMINE HCL IV SCH (09:00)
[2020-08-13] MEDS: FOLIC ACID IV SCH (09:00)
[2020-08-13] MEDS: FUROSEMIDE 10 MG/ML 2ML VIAL IV SCH ×2 (09:06→22:14)
[2020-08-13] MEDS: RIFAXIMIN 200 MG TABLET PO SCH ×3 (09:16→22:16)
[2020-08-13] MEDS: HYDROCORTISONE 25 MG SUPPOSITORY PR SCH ×2 (09:16→22:16)
[2020-08-13] MEDS: MULTIVITAMIN TABLET PO SCH (09:16)
[2020-08-13] MEDS: LACTULOSE 20 GM/30 ML UDCUP PO SCH ×2 (09:16→22:16)
[2020-08-13 11:00] VITALS: BP 162/71
[2020-08-13] MEDS: POTASSIUM CHLORIDE 10% ELIXIR 20 MEQ/15 ML UDCUP PO SCH ×2 (13:23→22:15)
[2020-08-13] MEDS: HYDROMORPHONE HCL 0.5 MG/0.5 ML ML IVP PRN (13:29)
[2020-08-13] MEDS: CEFTRIAXONE SODIUM 1 GM IVP SCH (17:26)
[2020-08-13 18:47] VITALS: BP 158/88
[2020-08-13 20:00] VITALS: BP 155/75
[2020-08-13] MEDS: FAMOTIDINE/PF 20 MG/2 ML VIAL IV SCH (22:14)
[2020-08-14] VITALS (16 sets, daily range): BP systolic 150–206; BP diastolic 61–98
[2020-08-14] MEDS: MULTIVITAMIN TABLET PO SCH (09:23)
[2020-08-14] MEDS: RIFAXIMIN 200 MG TABLET PO SCH ×3 (09:23→21:26)
[2020-08-14] MEDS: HYDROCORTISONE 25 MG SUPPOSITORY PR SCH ×2 (09:24→21:26)
[2020-08-14] MEDS: LACTULOSE 20 GM/30 ML UDCUP PO SCH ×2 (09:24→21:26)
[2020-08-14] MEDS: OCTREOTIDE ACETATE 100 MCG/ML AMP SQ SCH (09:25)
[2020-08-14 10:19] LABS: CREATININE 2.4 mg/dL (0.5-1.5); POTASSIUM 3.1 mmol/L (3.5-5.1)
[2020-08-14] MEDS ORDERED: POTASSIUM CHLORIDE 20 MEQ/100 ML BAG IV SCH (11:45)
[2020-08-14] MEDS: [UNRECOGNIZED DRUG - OTHER] IV SCH (12:20)
[2020-08-14] MEDS: FOLIC ACID IV SCH (12:20)
[2020-08-14] MEDS: THIAMINE HCL IV SCH (12:20)
[2020-08-14] MEDS: M V I IV SCH (12:20)
[2020-08-14] MEDS ORDERED: FENTANYL CITRATE PF 50 MCG/1 ML 2ML VIAL ONE (13:56)
[2020-08-14] MEDS ORDERED: LIDOCAINE HCL 1% 10 ML VIAL ONE (14:31)
[2020-08-14] MEDS: SODIUM CHLORIDE 0.9% 1000ML 1,000 ML IV SCH (14:52)
--- NOTE | 2020-08-14 15:00 | NUR ---
CT GD RT ILIAC BONE MARROW BX ASPIRATION PROCEDURE PERFORMED BY DR Melva NGO. PUNCTURE SITE RT BUTTOCK AND PATIENT TOLERATED PROCEDURE WELL. SPECIMEN X 6 COLLECTED AND SENT TO LAB. END OF PROCEDURE AT 1425. BIOPSY NEEDLE REMOVED AND DRESSING APPLIED. NO BLEEDING NOTED. REPORT GIVEN TO Niels CORCORAN RN AND PATIENT TRANSPORTED TO [facility] VIA BED AT 1500. AAO X3 WITH NO C/O PAIN.
--- NOTE | 2020-08-14 16:47 | NUR ---
CM NOTE MET WITH PATIENT AND SIBLING AT BEDSIDE. NOTED INCREASE CONFUSION ON PATIENT AND NOW ON 1:1. PER SIBLING, STILL WANTS PATIENT TO ATTEND [facility] FOR PHYSICAL THERAPY. POSSIBLE ORTHOPEDIC SURGERY PENDING ORDERS FROM DR. MADDOX. CM TO FOLLOW UP.
--- NOTE | 2020-08-14 16:50 | NUR ---
RD NOTIFICATION Pt admitted due to s/p fall with fracture. RD screen due to LOS x 8 days Pt has hx of liver cirrhosis with current ETOH use. Pt has hx of noncompliance. Pt is s/p: - 1 unit of plt transfusion (08/12/20) - EGD with large esophageal varices and clipping (08/09/20) - Ascites removal of 5.2 L of fluid. (08/07/20) - Colonoscopy (08/12/20) Pt is pending bone marrow biopsy. Pt is currently on a FLD diet with a PO consumption of 75-100% RD RECOMMENDATION: Ensure BID- monitor tolerance, increase as tolerated. When medically feasible to advance diet, consider a general heart healthy diet (2 gm NA), with a renal non-HD diet, and GI soft modifier. Monitor tolerance to diet and any active bleeding due to esophageal varices. Monitor PO intake Continue with vitamin supplementation as medically feasible LABS: WBC 2.8, NA 145, K 3.1, CL 112, BUN 28, CREAT 2.4, GFR 28, BG 186, TOT CA 6.9, ALB 2.6, TOT PRO 6.6, IRON 89, TIBC 426 LBM: 08/13/20 Addendum: 08/14/20 at [address] Amended: Links added.
[2020-08-14] MEDS: CEFTRIAXONE SODIUM 1 GM IVP SCH (17:36)
[2020-08-14] MEDS ORDERED: LIDOCAINE HCL-MPF 1% 2ML VIAL IV PRN (20:15)
[2020-08-14] MEDS ORDERED: POTASSIUM CHLORIDE 20 MEQ ERTAB PO PRN (20:15)
[2020-08-14] MEDS ORDERED: POTASSIUM CHLORIDE 10% ELIXIR 20 MEQ/15 ML UDCUP PO PRN (20:15)
[2020-08-14] MEDS: POTASSIUM CHLORIDE 20MEQ/100ML 100 ML IV PRN (21:26)
[2020-08-14] MEDS: FAMOTIDINE/PF 20 MG/2 ML VIAL IV SCH (21:26)
--- NOTE | 2020-08-14 23:00 | NUR ---
SPOKE WITH SHARRI PARSONS NP, ON THE PHONE FOR PATIENT'S BLOOD PRESSURE OF 190/85 WITH HEART RATE OF 75. HE ORDERED LABETALLOL 10 MG IV EVERY 4 HOURS FOR SYSTOLIC BLOOD PRESSURE ABOVE 170. I GAVE 10 MG OF LABETALOL AT 23:05. WILL CONTINUE TO MONITOR BLOOD PRESSURE.
[2020-08-14] MEDS ORDERED: LABETALOL HCL 5 MG/ML 20ML VIAL IV ONE (23:10)
[2020-08-14] MEDS ORDERED: LABETALOL HCL 5 MG/ML 20ML VIAL IV PRN (23:15)
[2020-08-15] VITALS (25 sets, daily range): BP systolic 90–154; BP diastolic 44–100
[2020-08-15 04:26] LABS: HEMATOCRIT 24.3 % (42-54); MEAN CORPUSCULAR HEMOGLOBIN 29.7 pg (27.0-33.0); MEAN CORPUSCULAR HGB CONC 33.7 g/dL (32.0-36.0); RED BLOOD CELL COUNT(AUTO) 2.76 MIL/uL (4.50-6.20); RED CELL DISTRIBUTION WIDTH 18.9 % (11.0-15.5); WHITE BLOOD COUNT (AUTO) 3.1 K/uL (4.8-10.8)
[2020-08-15 04:27] LABS: CREATININE 2.2 mg/dL (0.5-1.5); POTASSIUM 3.3 mmol/L (3.5-5.1)
[2020-08-15] MEDS: PANTOPRAZOLE SODIUM 40 MG TABLET.DR PO SCH (05:08)
[2020-08-15] MEDS: POTASSIUM CHLORIDE 20MEQ/100ML 100 ML IV PRN (05:17)
[2020-08-15] MEDS: HYDROMORPHONE HCL 0.5 MG/0.5 ML ML IVP PRN ×2 (05:17→19:49)
[2020-08-15] MEDS: SODIUM CHLORIDE 0.9% 1000ML 1,000 ML IV SCH ×2 (05:27→10:52)
--- NOTE | 2020-08-15 05:50 | NUR ---
GAVE 1 UNIT OF PLATELETS LAST NIGHT ORDERED BY TANISHA LESTER NP.
[2020-08-15] MEDS ORDERED: LACTATED RINGERS 1000ML 1,000 ML IV ONE (06:58)
[2020-08-15] MEDS ORDERED: SUCCINYLCHOLINE CHLORIDE 20 MG/ML 10 ML VIAL ONE (07:43)
[2020-08-15] MEDS ORDERED: LIDOCAINE PF 2% 5ML ABBOJECT ONE (07:43)
[2020-08-15] MEDS ORDERED: NEOSTIGMINE 5MG/5ML SYR IV ONE (07:44)
[2020-08-15] MEDS ORDERED: GLYCOPYRROLATE 1 MG/5 ML SYRINGE ONE (07:44)
[2020-08-15] MEDS ORDERED: ROCURONIUM 10MG/1ML SYR 10 MG/ML ML ONE (07:44)
[2020-08-15] MEDS ORDERED: FENTANYL CITRATE PF 50 MCG/1 ML 2ML VIAL ONE (07:44)
[2020-08-15] MEDS ORDERED: PROPOFOL 10 MG/ML 20ML VIAL IV ONE ×2 (07:44→09:05)
[2020-08-15] MEDS ORDERED: ROPIVACAINE 0.5% 5MG/ML 30ML IJ ONE (07:45)
[2020-08-15] MEDS ORDERED: CEFAZOLIN SODIUM 1 GM VIAL IVP ONE (08:01)
[2020-08-15] MEDS ORDERED: CEFAZOLIN SODIUM 1 GM VIAL ONE ×2 (08:06)
[2020-08-15] MEDS: [UNRECOGNIZED DRUG - OTHER] IV SCH (09:00)
[2020-08-15] MEDS: OCTREOTIDE ACETATE 100 MCG/ML AMP SQ SCH (09:00)
[2020-08-15] MEDS: M V I IV SCH (09:00)
[2020-08-15] MEDS: THIAMINE HCL IV SCH (09:00)
[2020-08-15] MEDS: FOLIC ACID IV SCH (09:00)
[2020-08-15] MEDS ORDERED: SODIUM CHLORIDE 0.9% 1000ML 1,000 ML IV SCH (09:15)
[2020-08-15] MEDS: HYDROCORTISONE 25 MG SUPPOSITORY PR SCH ×2 (13:19→19:48)
[2020-08-15] MEDS: LACTULOSE 20 GM/30 ML UDCUP PO SCH ×2 (13:19→19:48)
[2020-08-15] MEDS: MULTIVITAMIN TABLET PO SCH (13:19)
[2020-08-15] MEDS: RIFAXIMIN 200 MG TABLET PO SCH ×3 (13:19→19:48)
--- NOTE | 2020-08-15 13:28 | NUR ---
CM NOTE/[facility] ORTHOPEDIC SURGERY DONE 08/15. JEFFRY PREVIOUSLY COMPLETED FOR [facility] FOLLOWING ORTHO SURGERY. CLINICAL PACKET FAXED TO JONATHAN AT [facility]. PENDING PT EVALUATION AND OPERATIVE NOTES, THIS CM TO FAX THESE WHEN AVAILABLE. JONATHAN FROM [facility] MADE AWARE OF REFERRAL, VERBALIZED UNDERSTANDING.
[2020-08-15] MEDS: CEFTRIAXONE SODIUM 1 GM IVP SCH (18:18)
[2020-08-15] MEDS: FAMOTIDINE/PF 20 MG/2 ML VIAL IV SCH (19:48)
--- NOTE | 2020-08-15 23:48 | NUR ---
PATIENT ALERT TIMES PERSON. PATIENT HAS PAIN THROUGHOUT THE NIGHT AND WAS GIVEN TYNELOL AND DILAUDID ALTERNATED FOR PAIN. PATIENT'S PICC LINE DRESSING CHANGED.
[2020-08-16 03:12] VITALS: BP 148/74
[2020-08-16] MEDS: PANTOPRAZOLE SODIUM 40 MG TABLET.DR PO SCH (05:56)
[2020-08-16 06:06] LABS: HEMATOCRIT 26.1 % (42-54); MEAN CORPUSCULAR HEMOGLOBIN 28.4 pg (27.0-33.0); MEAN CORPUSCULAR HGB CONC 31.8 g/dL (32.0-36.0); MEAN CORPUSCULAR VOLUME 89.4 fL (79-99); RED BLOOD CELL COUNT(AUTO) 2.92 MIL/uL (4.50-6.20); RED CELL DISTRIBUTION WIDTH 19.9 % (11.0-15.5); WHITE BLOOD COUNT (AUTO) 3.4 K/uL (4.8-10.8)
[2020-08-16 06:06] LABS: CREATININE 2.3 mg/dL (0.5-1.5); POTASSIUM 3.8 mmol/L (3.5-5.1)
[2020-08-16 06:33] LABS: PLATELET COUNT (AUTO) 29 K/uL (130-400)
[2020-08-16 08:00] VITALS: BP 156/72
[2020-08-16] MEDS: FOLIC ACID IV SCH (09:00)
[2020-08-16] MEDS: OCTREOTIDE ACETATE 100 MCG/ML AMP SQ SCH (09:00)
[2020-08-16] MEDS: M V I IV SCH (09:00)
[2020-08-16] MEDS: [UNRECOGNIZED DRUG - OTHER] IV SCH (09:00)
[2020-08-16] MEDS ORDERED: ENOXAPARIN SODIUM 40 MG/0.4 ML SYRINGE SQ SCH (09:00)
[2020-08-16] MEDS: RIFAXIMIN 200 MG TABLET PO SCH ×3 (09:00→22:10)
[2020-08-16] MEDS: THIAMINE HCL IV SCH (09:00)
[2020-08-16 12:00] VITALS: BP 147/49
[2020-08-16] MEDS: HYDROCORTISONE 25 MG SUPPOSITORY PR SCH ×2 (14:18→22:10)
[2020-08-16] MEDS: LACTULOSE 20 GM/30 ML UDCUP PO SCH ×2 (14:19→22:10)
[2020-08-16] MEDS: MULTIVITAMIN TABLET PO SCH (14:19)
[2020-08-16] MEDS: CEFTRIAXONE SODIUM 1 GM IVP SCH (16:08)
[2020-08-16 16:48] VITALS: BP 124/62
[2020-08-16] MEDS: ALBUTEROL SULFATE 0.083% 2.5 MG/3 ML INH IH SCH (18:33)
[2020-08-16 20:00] VITALS: BP 144/48
[2020-08-16] MEDS: FAMOTIDINE/PF 20 MG/2 ML VIAL IV SCH (22:10)
[2020-08-16] MEDS: HYDROMORPHONE HCL 0.5 MG/0.5 ML ML IVP PRN (22:23)
[2020-08-17] VITALS (7 sets, daily range): BP systolic 115–154; BP diastolic 55–80
[2020-08-17] MEDS: ALBUTEROL SULFATE 0.083% 2.5 MG/3 ML INH IH SCH ×4 (01:38→18:54)
[2020-08-17 05:49] LABS: MEAN CORPUSCULAR HEMOGLOBIN 28.2 pg (27.0-33.0); MEAN CORPUSCULAR HGB CONC 31.4 g/dL (32.0-36.0); MEAN CORPUSCULAR VOLUME 89.7 fL (79-99); PLATELET COUNT (AUTO) 58 K/uL (130-400); RED BLOOD CELL COUNT(AUTO) 2.34 MIL/uL (4.50-6.20); RED CELL DISTRIBUTION WIDTH 20.3 % (11.0-15.5); WHITE BLOOD COUNT (AUTO) 4.2 K/uL (4.8-10.8)
[2020-08-17 05:58] LABS: CREATININE 2.5 mg/dL (0.5-1.5); POTASSIUM 3.8 mmol/L (3.5-5.1)
[2020-08-17] MEDS ORDERED: DEXAMETHASONE SOD PHOSPHATE 4 MG/ML 1ML VIAL IVP SCH (06:45)
[2020-08-17] MEDS ORDERED: DEXAMETHASONE 10MG/ML 1ML VIAL 10 MG in SODIUM CHLORIDE 0.9% 50 ML IV SCH (07:15)
[2020-08-17] MEDS: LACTULOSE 20 GM/30 ML UDCUP PO SCH ×2 (08:29→20:51)
[2020-08-17] MEDS: RIFAXIMIN 200 MG TABLET PO SCH ×3 (08:31→20:51)
[2020-08-17] MEDS: MULTIVITAMIN TABLET PO SCH (08:31)
[2020-08-17] MEDS: PANTOPRAZOLE SODIUM 40 MG TABLET.DR PO SCH (08:31)
[2020-08-17] MEDS: HYDROCORTISONE 25 MG SUPPOSITORY PR SCH ×2 (08:31→20:51)
[2020-08-17] MEDS: OCTREOTIDE ACETATE 100 MCG/ML AMP SQ SCH (08:32)
--- NOTE | 2020-08-17 14:37 | NUR ---
CM NOTE/[facility] APPROVED PER JONATHAN GRAHAM, AUTH RECEIVED. PRIMARY NURSE, FANY BUTTERFIELD, MADE AWARE. PATIENT RECEIVING BLOOD TRANSFUSION TODAY D/T A DECREASE IN HEMOGLOBIN/HEMATOCRIT. PER BLOOD BANK SPECIALIST FOR [employer], WILL DC TO SNF TOMORROW IF STABLE. FANY BUTTERFIELD, MADE AWARE. SIBLINF OF PATIENT, NIMCO, MADE AWARE OF POSSIBLE DC TO SNF ON 08/18 IF STABLE.
--- NOTE | 2020-08-17 15:20 | NUR ---
PATEL CATHETER REMOVED 400 CC PATIENT DUE TO VOID BY 2200
[2020-08-17] MEDS: CEFTRIAXONE SODIUM 1 GM IVP SCH (17:04)
[2020-08-17 18:35] LABS: HEMATOCRIT 25.6 % (42-54)
[2020-08-17] MEDS: FAMOTIDINE/PF 20 MG/2 ML VIAL IV SCH (20:51)
[2020-08-18] VITALS (7 sets, daily range): BP systolic 150–189; BP diastolic 66–87
[2020-08-18] MEDS: ALBUTEROL SULFATE 0.083% 2.5 MG/3 ML INH IH SCH ×5 (00:49→23:05)
[2020-08-18 04:13] LABS: HEMATOCRIT 23.3 % (42-54); MEAN CORPUSCULAR HEMOGLOBIN 27.8 pg (27.0-33.0); MEAN CORPUSCULAR HGB CONC 32.2 g/dL (32.0-36.0); MEAN CORPUSCULAR VOLUME 86.3 fL (79-99); RED BLOOD CELL COUNT(AUTO) 2.7 MIL/uL (4.50-6.20); RED CELL DISTRIBUTION WIDTH 19.3 % (11.0-15.5); WHITE BLOOD COUNT (AUTO) 3.5 K/uL (4.8-10.8)
[2020-08-18 04:37] LABS: CREATININE 2.4 mg/dL (0.5-1.5)
[2020-08-18] MEDS: HYDROMORPHONE HCL 0.5 MG/0.5 ML ML IVP PRN (06:34)
[2020-08-18] MEDS: PANTOPRAZOLE SODIUM 40 MG TABLET.DR PO SCH (09:52)
[2020-08-18] MEDS: RIFAXIMIN 200 MG TABLET PO SCH ×3 (09:52→21:37)
[2020-08-18] MEDS: MULTIVITAMIN TABLET PO SCH (09:52)
[2020-08-18] MEDS: LACTULOSE 20 GM/30 ML UDCUP PO SCH ×2 (09:52→21:36)
[2020-08-18] MEDS: OCTREOTIDE ACETATE 100 MCG/ML AMP SQ SCH (09:53)
[2020-08-18] MEDS: HYDROCORTISONE 25 MG SUPPOSITORY PR SCH ×2 (09:53→21:38)
--- NOTE | 2020-08-18 10:32 | NUR ---
RD FOLLOW UP Pt is currently on a 75 gm CC diet with a PO of 75-100% as per EMR. Pt is s/p left proximal humerus fracture ORIF 08/15/20 s/p blood transfusion. s/p EGD 08/09/20 with large esophageal varices, and clipping s/p removal of 5.2 L due to ascites As per EMR, pt had a drop in Hbg/Hct on 08/17/20 Pt has d/c order in place RD RECOMMENDATION; Continue current diet order Monitor PO Monitor Renal labs and Hgb/Hct Monitor bowel movements Contact RD as nutritional concerns arise, thank you LABS: HGB 7.5, HCT 23.3, CO2 20, BUN 33, CREAT 2.4, GFR 30, BG 137, TOT CA 6.9, AMMONIA 46, ALB 2.6, TOT PRO 6.6, BNP 377 LBM: 08/15/20 Addendum: 08/18/20 at [address] Amended: Links added.
--- NOTE | 2020-08-18 12:32 | NUR ---
CM NOTE/RETAMA PER JONATHAN, PATIENT ACCEPTED AT [facility]. EMS FORMS FAXED AND FLAGGED IN CHART FOR NURSE USE. MED REC FLAGGED IN CHART FOR MD/COMPETITIVE ATHLETE USE. PRIMARY NURSE, CHRIS BUTTERFIELD, MADE AWARE.
[2020-08-18] MEDS ORDERED: LACTULOSE 20 GM/30 ML UDCUP PO ONE (15:30)
[2020-08-18] MEDS: CEFTRIAXONE SODIUM 1 GM IVP SCH (17:00)
--- NOTE | 2020-08-18 17:46 | NUR ---
REPORT GIVEN TO DANNY FROM [facility]
--- NOTE | 2020-08-18 17:50 | NUR ---
picc line removed .tip intact, pressure applied for 10min . no signs of bleed. dressing placed .
--- NOTE | 2020-08-18 18:30 | NUR ---
CALLED TO EMS ,CONFIRMED ON FAX REQUEST.PENDING FOR [employer]OP SUPERVISOR
--- NOTE | 2020-08-18 20:18 | NUR ---
called to sister elvia TO LET HER KNOW ON TRANSFER TO [facility] . SISTER STATED OK
[2020-08-18] MEDS: FAMOTIDINE/PF 20 MG/2 ML VIAL IV SCH (21:39)
[2020-08-19 00:04] VITALS: BP 125/69
--- NOTE | 2020-08-19 01:48 | NUR ---
DC STATUS DCD IN STABLE CONDITIONS PER V/S, DENIES ACUTE PAIN OR DISCOMFORT. DRESSING ANTERIOR SHOULDER/UPPER ARM INTACT/DRY.SLING IN PLACE,AWAKE CONFUSED AT TIMES,REORIENTED ,REASSURED . ON THE WAY TO [facility] , ACCOMPANIED BY 2 EMS PERSONNEL. PERTINENT DOCUMENTS ENDORSED TO EMS,CARED FOR. Addendum: 08/19/20 at 0158 by CINDY SINGH RN RN Amended: Links added.
== END 2020-08-19 01:45 | DRG 492 ==
LOC: EDH 14:14 → EDHIP 15:50 → 3BH 20:09
PROVIDERS: ADMIT Internal Medicine Critical Care Medicine; ATTEND Internal Medicine Critical Care Medicine
PROC: 30233N1 Transfusion of Nonautologous Red Blood Cells into Peripheral Vein, Percutaneous Approach (ICD-10-PCS; 2020-08-06)
PROC: 0W9G3ZZ Drainage of Peritoneal Cavity, Percutaneous Approach (ICD-10-PCS; principal; 2020-08-07)
PROC: 02HV33Z Insertion of Infusion Device into Superior Vena Cava, Percutaneous Approach (ICD-10-PCS; 2020-08-07)
PROC: B548ZZA Ultrasonography of Superior Vena Cava, Guidance (ICD-10-PCS; 2020-08-07)
PROC: 06L38CZ Occlusion of Esophageal Vein with Extraluminal Device, Via Natural or Artificial Opening Endoscopic (ICD-10-PCS; 2020-08-09)
PROC: 0DBL8ZZ Excision of Transverse Colon, Via Natural or Artificial Opening Endoscopic (ICD-10-PCS; 2020-08-12)
PROC: 30233R1 Transfusion of Nonautologous Platelets into Peripheral Vein, Percutaneous Approach (ICD-10-PCS; 2020-08-12)
PROC: 0PSD04Z Reposition Left Humeral Head with Internal Fixation Device, Open Approach (ICD-10-PCS; 2020-08-15)
PROC: 3E0T3BZ Introduction of Anesthetic Agent into Peripheral Nerves and Plexi, Percutaneous Approach (ICD-10-PCS; 2020-08-15)
PROC: 07DR3ZX Extraction of Iliac Bone Marrow, Percutaneous Approach, Diagnostic (ICD-10-PCS; 2020-08-18)
DX: S42.212A Unspecified displaced fracture of surgical neck of left humerus, initial encounter for closed fracture (principal); K76.7 Hepatorenal syndrome; K72.00 Acute and subacute hepatic failure without coma; K65.2 Spontaneous bacterial peritonitis; D61.818 Other pancytopenia; E44.0 Moderate protein-calorie malnutrition; K76.6 Portal hypertension; C18.9 Malignant neoplasm of colon, unspecified; K63.3 Ulcer of intestine; N18.4 Chronic kidney disease, stage 4 (severe); D62 Acute posthemorrhagic anemia; N17.9 Acute kidney failure, unspecified; I85.00 Esophageal varices without bleeding; K55.20 Angiodysplasia of colon without hemorrhage; R53.81 Other malaise; E78.5 Hyperlipidemia, unspecified; H54.8 Legal blindness, as defined in USA; Z20.828 Contact with and (suspected) exposure to other viral communicable diseases; W18.30XA Fall on same level, unspecified, initial encounter; R62.7 Adult failure to thrive; D63.1 Anemia in chronic kidney disease; E11.22 Type 2 diabetes mellitus with diabetic chronic kidney disease; K72.10 Chronic hepatic failure without coma; K70.9 Alcoholic liver disease, unspecified; I25.10 Atherosclerotic heart disease of native coronary artery without angina pectoris; E87.6 Hypokalemia; K64.8 Other hemorrhoids; K57.30 Diverticulosis of large intestine without perforation or abscess without bleeding; K42.9 Umbilical hernia without obstruction or gangrene; K31.89 Other diseases of stomach and duodenum; K29.00 Acute gastritis without bleeding; E87.8 Other disorders of electrolyte and fluid balance, not elsewhere classified; K70.31 Alcoholic cirrhosis of liver with ascites; I12.9 Hypertensive chronic kidney disease with stage 1 through stage 4 chronic kidney disease, or unspecified chronic kidney disease; Z91.14 Patient's other noncompliance with medication regimen; Z83.3 Family history of diabetes mellitus; Z82.49 Family history of ischemic heart disease and other diseases of the circulatory system; Z79.899 Other long term (current) drug therapy; Y93.89 Activity, other specified; I25.2 Old myocardial infarction; Y92.89 Other specified places as the place of occurrence of the external cause; Y99.8 Other external cause status; Z68.34 Body mass index [BMI] 34.0-34.9, adult
CPT/HCPCS: 36415; 36430; 38222; 43246; 45380; 49083; 70450; 71045; 71250; 72125; 73030; 73060; 76770; 77012; 80048; 80053; 80061; 80076; 80305; 81001; 82140; 82550; 82728; 82948; 83540; 83550; 83735; 83874; 83880; 83883; 84100; 84156; 84165; 84484; 85014; 85018; 85025; 85027; 85610; 85730; 86677; 86850; 86900; 86901; 86923; 87071; 87205; 87426; 89051; 93005; 93306; 93356; 94640; 94664; 97039; A4565; A4606; C1894; C9113; G0378; J0330; J0461; J0690; J0696; J1100; J1170; J1940; J2001; J2270; J2354; J2405; J2704; J2710; J2795; J3010; J3411; J3475; J3480; J3490; J7030; J7050; J7120; P9016; P9034; P9046; U0003

== ENCOUNTER → 2020-10-30 | Outpatient (CLI) | payer OTHER, MEDICARE ==
[~2020-10-30] MED LIST changes: -FLUT16H NASAL; -IPRA3AMP24 IH; -IRON150C5 PO; +PANT40TA PO
== END | disposition home or self-care (01) ==
LOC: RAH 08:53
PROVIDERS: ATTEND Internal Medicine
DX: K80.20 Calculus of gallbladder without cholecystitis without obstruction (principal); K74.69 Other cirrhosis of liver; R16.1 Splenomegaly, not elsewhere classified; R18.8 Other ascites; K76.9 Liver disease, unspecified
CPT/HCPCS: 76700; 93975

== ENCOUNTER 2020-11-03 16:10 | Inpatient (IN) | payer OTHER, MEDICARE ==
[~2020-11-03] VITALS: Ht 167.6 cm; Wt 72.2 kg
[2020-11-03 16:43] LABS: BASOPHILS % (AUTO) 1.1 % (0.0-5.0); EOSINOPHILS % (AUTO) 7.1 % (0.0-8.0); HEMATOCRIT 22.3 % (42-54); LYMPHOCYTES % (AUTO) 23.6 % (21.0-51.0); MEAN CORPUSCULAR HEMOGLOBIN 28.9 pg (27.0-33.0); MEAN CORPUSCULAR HGB CONC 31.8 g/dL (32.0-36.0); MEAN CORPUSCULAR VOLUME 90.7 fL (79-99); MONOCYTES % (AUTO) 9.9 % (3.0-13.0); NEUTROPHILS % (AUTO) 58.3 % (40.0-77.0); PLATELET COUNT (AUTO) 49 K/uL (130-400); RED BLOOD CELL COUNT(AUTO) 2.46 MIL/uL (4.50-6.20); RED CELL DISTRIBUTION WIDTH 17.2 % (11.0-15.5); WHITE BLOOD COUNT (AUTO) 1.8 K/uL (4.8-10.8)
[2020-11-03 16:53] LABS: CREATININE 3.4 mg/dL (0.5-1.5); POTASSIUM 4.3 mmol/L (3.5-5.1)
[2020-11-03 16:54] LABS: INR 1.13 (0.85-1.15); PROTHROMBIN TIME 12.2 SEC (9.6-11.6)
[2020-11-03 16:55] LABS: PARTIAL THROMBOPLASTIN TIME 27.3 SEC (26.3-35.5)
[2020-11-03 16:59] LABS: BILIRUBIN,TOTAL 0.5 mg/dL (0.2-1.0); TOTAL PROTEIN, SERUM 7.7 g/dL (6.0-8.3)
[2020-11-03] MEDS ORDERED: CEFTRIAXONE 1G VIAL ONE (19:00)
[2020-11-03] MEDS ORDERED: 0.9%NACL 50ML 50 ML IV ONE (19:00)
[2020-11-03 19:18] LABS: RETICULOCYTE % (AUTO) 1.83 % (0.42-2.23)
[2020-11-03] MEDS ORDERED: ACETAMINOPHEN 325 MG TAB PO PRN (20:00)
[2020-11-03] MEDS ORDERED: ONDANSETRON 4MG INJ IVP PRN (20:00)
[2020-11-03] MEDS ORDERED: 0.9%NACL 100ML 100 ML IV ONE (20:03)
[2020-11-03] MEDS ORDERED: LACTULOSE 20 GM/30 ML UDCUP ONE (23:37)
[2020-11-04 00:20] VITALS: BP 160/84
[2020-11-04] MEDS ORDERED: FERR325T22 PO (02:18)
[2020-11-04] MEDS ORDERED: RIFA550T PO (02:18)
[2020-11-04 04:00] VITALS: BP 138/81
[2020-11-04] MEDS ORDERED: ACETAMINOPHEN 325 MG TAB PO PRN (04:00)
[2020-11-04] MEDS ORDERED: ACETAMINOPHEN 650 MG SUPPOSITORY RC PRN (04:00)
[2020-11-04 06:03] LABS: HEMATOCRIT 25.1 % (42-54); MEAN CORPUSCULAR HEMOGLOBIN 30.3 pg (27.0-33.0); MEAN CORPUSCULAR HGB CONC 34.7 g/dL (32.0-36.0); MEAN CORPUSCULAR VOLUME 87.5 fL (79-99); PLATELET COUNT (AUTO) 37 K/uL (130-400); RED BLOOD CELL COUNT(AUTO) 2.87 MIL/uL (4.50-6.20); RED CELL DISTRIBUTION WIDTH 15.9 % (11.0-15.5); WHITE BLOOD COUNT (AUTO) 1.4 K/uL (4.8-10.8)
[2020-11-04 06:59] LABS: CARBON DIOXIDE 17 mmol/L (21-32); CHLORIDE 115 mmol/L (101-111); CREATINE KINASE, TOTAL 26 U/L (21-232); CREATININE 3.1 mg/dL (0.5-1.5); GLOMERULAR FILTR. RATE CALC 21 mL/min (>60); GLUCOSE,RANDOM 87 mg/dL (70-105); MYOGLOBIN 89 ng/mL (10-92); POTASSIUM 4.1 mmol/L (3.5-5.1); SODIUM SERUM 144 mmol/L (136-145); TROPONIN I < 0.04 ng/mL (0.00-0.06); UREA NITROGEN, BLOOD 40 mg/dL (7-18)
[2020-11-04 08:00] VITALS: BP 115/87
[2020-11-04] MEDS ORDERED: PANTOPRAZOLE 40 MG TAB DR PO SCH (09:00)
[2020-11-04] MEDS: CEFTRIAXONE 1G VIAL IVP SCH (10:33)
[2020-11-04] MEDS: LACTULOSE 20 GM/30 ML UDCUP PO SCH ×3 (10:36→19:37)
[2020-11-04] MEDS: PANTOPRAZOLE 40 MG TAB DR PO SCH ×2 (10:36→19:37)
[2020-11-04 11:31] VITALS: BP 130/84
[2020-11-04 11:49] LABS: HEMATOCRIT 26.6 % (42-54)
[2020-11-04 12:10] LABS: CREATINE KINASE, TOTAL 29 U/L (21-232); MYOGLOBIN 85 ng/mL (10-92); TROPONIN I < 0.04 ng/mL (0.00-0.06)
[2020-11-04 16:30] VITALS: BP 142/93
[2020-11-04 18:00] LABS: HEMATOCRIT 26.7 % (42-54)
[2020-11-04 18:26] LABS: CREATINE KINASE, TOTAL 28 U/L (21-232); MYOGLOBIN 83 ng/mL (10-92); TROPONIN I < 0.04 ng/mL (0.00-0.06)
[2020-11-04 19:51] VITALS: BP 130/94
[2020-11-04] MEDS ORDERED: DIPHENHYDRAMINE HCL 25 MG CAPSULE PO PRN (23:15)
[2020-11-05] VITALS (7 sets, daily range): BP systolic 121–157; BP diastolic 80–92
[2020-11-05 00:25] LABS: HEMATOCRIT 24.2 % (42-54)
[2020-11-05 05:26] LABS: BASOPHILS % (AUTO) 1.4 % (0.0-5.0); EOSINOPHILS % (AUTO) 7.4 % (0.0-8.0); HEMATOCRIT 25.2 % (42-54); LYMPHOCYTES % (AUTO) 20.3 % (21.0-51.0); MEAN CORPUSCULAR HGB CONC 32.9 g/dL (32.0-36.0); MEAN CORPUSCULAR VOLUME 88.1 fL (79-99); MONOCYTES % (AUTO) 12.8 % (3.0-13.0); NEUTROPHILS % (AUTO) 58.1 % (40.0-77.0); PLATELET COUNT (AUTO) 20 K/uL (130-400); RED BLOOD CELL COUNT(AUTO) 2.86 MIL/uL (4.50-6.20); RED CELL DISTRIBUTION WIDTH 15.9 % (11.0-15.5); WHITE BLOOD COUNT (AUTO) 1.5 K/uL (4.8-10.8)
[2020-11-05 05:47] LABS: ALBUMIN 2.6 g/dL (3.5-5.0); BILIRUBIN,TOTAL 0.7 mg/dL (0.2-1.0); CREATININE 2.9 mg/dL (0.5-1.5); MAGNESIUM 2.4 mg/dL (1.80-2.40); POTASSIUM 4.3 mmol/L (3.5-5.1); TOTAL PROTEIN, SERUM 6.7 g/dL (6.0-8.3)
[2020-11-05] MEDS: CEFTRIAXONE 1G VIAL IVP SCH (08:44)
[2020-11-05] MEDS: LACTULOSE 20 GM/30 ML UDCUP PO SCH ×2 (08:45→20:52)
[2020-11-05] MEDS: PANTOPRAZOLE 40 MG TAB DR PO SCH ×2 (08:45→20:51)
[2020-11-06] VITALS (11 sets, daily range): BP systolic 113–154; BP diastolic 67–85
[2020-11-06 04:41] LABS: MEAN CORPUSCULAR HEMOGLOBIN 29.4 pg (27.0-33.0); MEAN CORPUSCULAR HGB CONC 33.6 g/dL (32.0-36.0); MEAN CORPUSCULAR VOLUME 87.4 fL (79-99); RED BLOOD CELL COUNT(AUTO) 2.86 MIL/uL (4.50-6.20); RED CELL DISTRIBUTION WIDTH 15.8 % (11.0-15.5); WHITE BLOOD COUNT (AUTO) 1.7 K/uL (4.8-10.8)
[2020-11-06 05:09] LABS: CREATININE 2.8 mg/dL (0.5-1.5); POTASSIUM 4.6 mmol/L (3.5-5.1)
[2020-11-06] MEDS: CEFTRIAXONE 1G VIAL IVP SCH (08:39)
[2020-11-06] MEDS: LACTULOSE 20 GM/30 ML UDCUP PO SCH ×2 (08:39→21:15)
[2020-11-06] MEDS: PANTOPRAZOLE 40 MG TAB DR PO SCH ×2 (08:39→10:46)
[2020-11-06] MEDS ORDERED: LACTULOSE 20 GM/30 ML UDCUP PO PRN (09:00)
[2020-11-06] MEDS ORDERED: FERROUS SULFATE PO SCH (09:00)
[2020-11-06] MEDS ORDERED: DiphenhydrAMINE HCL 50 MG/ML VIAL IV SCH (10:00)
[2020-11-06] MEDS: FUROSEMIDE 20 MG TABLET PO SCH (10:46)
[2020-11-06] MEDS: PROPRANOLOL HCL 20 MG TAB PO SCH (10:46)
[2020-11-06] MEDS: FOLIC ACID 1 MG TABLET PO SCH (10:46)
[2020-11-06] MEDS: RIFAXIMIN 550 MG TABLET PO SCH ×2 (10:46→21:14)
[2020-11-06] MEDS ORDERED: DIPHENHYDRAMINE HCL 25 MG CAPSULE PO SCH (11:10)
[2020-11-06] MEDS ORDERED: DiphenhydrAMINE HCL 50 MG/ML VIAL ONE (13:41)
[2020-11-06] MEDS: [UNRECOGNIZED DRUG - REMARK] MISC SCH ×3 (13:45→21:38)
[2020-11-06] MEDS: FERROUS SULFATE 325 MG TABLET.DR PO SCH ×2 (14:15→21:14)
[2020-11-06] MEDS ORDERED: ALBUMIN (HUMAN) 25% 200 ML IV SCH (15:16)
[2020-11-06 19:31] LABS: APPEARANCE BODY FLUID SLIGHTLY CLOUDY (CLEAR); BODY FLUID WBC 116 /cu. mm.; COLOR,BODY FLUID YELLOW (LT YELLOW); SPECIMENTYPE,BODY FLUID ASCITES; TOTAL VOLUME,BODY FLUID 6800 mL
[2020-11-06 19:32] LABS: BODY FLUID RBC 287 /cu. mm.
[2020-11-06 21:04] LABS: BF LYMPHOCYTE 74 %; BF MONOCYTE 4 %; BF OTHER CELLS 5
[2020-11-07] VITALS (24 sets, daily range): BP systolic 107–149; BP diastolic 61–98
[2020-11-07] MEDS: [UNRECOGNIZED DRUG - REMARK] MISC SCH ×5 (01:45→15:11)
[2020-11-07] MEDS: FERROUS SULFATE 325 MG TABLET.DR PO SCH ×3 (08:01→20:47)
[2020-11-07] MEDS: FOLIC ACID 1 MG TABLET PO SCH (08:01)
[2020-11-07] MEDS: LACTULOSE 20 GM/30 ML UDCUP PO SCH ×2 (08:02→20:50)
[2020-11-07] MEDS: RIFAXIMIN 550 MG TABLET PO SCH ×2 (09:00→20:47)
[2020-11-07] MEDS: CEFTRIAXONE 1G VIAL IVP SCH (09:26)
[2020-11-07 09:50] LABS: HEMATOCRIT 27.4 % (42-54); MEAN CORPUSCULAR HEMOGLOBIN 29.3 pg (27.0-33.0); MEAN CORPUSCULAR HGB CONC 33.2 g/dL (32.0-36.0); MEAN CORPUSCULAR VOLUME 88.1 fL (79-99); RED BLOOD CELL COUNT(AUTO) 3.11 MIL/uL (4.50-6.20); RED CELL DISTRIBUTION WIDTH 15.5 % (11.0-15.5); WHITE BLOOD COUNT (AUTO) 1.6 K/uL (4.8-10.8)
[2020-11-07 10:00] LABS: CREATININE 2.7 mg/dL (0.5-1.5); POTASSIUM 4.3 mmol/L (3.5-5.1)
[2020-11-07 10:10] LABS: INR 1.19 (0.85-1.15); PROTHROMBIN TIME 12.8 SEC (9.6-11.6)
[2020-11-07 10:12] LABS: PARTIAL THROMBOPLASTIN TIME 29.5 SEC (26.3-35.5)
[2020-11-07] MEDS ORDERED: PROPOFOL 10 MG/ML 20ML VIAL IV ONE ×2 (10:59)
[2020-11-07] MEDS: PANTOPRAZOLE 40 MG TAB DR PO SCH (15:18)
[2020-11-07] MEDS: PROPRANOLOL HCL 20 MG TAB PO SCH (15:19)
[2020-11-07] MEDS: FUROSEMIDE 20 MG TABLET PO SCH (15:19)
[2020-11-08 03:50] VITALS: BP 133/89
[2020-11-08 05:51] LABS: MEAN CORPUSCULAR HEMOGLOBIN 30.4 pg (27.0-33.0); PLATELET COUNT (AUTO) 39 K/uL (130-400); RED BLOOD CELL COUNT(AUTO) 2.99 MIL/uL (4.50-6.20); RED CELL DISTRIBUTION WIDTH 15.1 % (11.0-15.5); WHITE BLOOD COUNT (AUTO) 2.3 K/uL (4.8-10.8)
[2020-11-08 05:54] LABS: CREATININE 2.6 mg/dL (0.5-1.5); POTASSIUM 4.2 mmol/L (3.5-5.1)
[2020-11-08 06:07] LABS: BASOPHILS % (MANUAL) 1 % (0-2); EOSINOPHILS % (MANUAL) 10 % (1-6); LYMPHOCYTES % (MANUAL) 8 % (22-44); MONOCYTES % (MANUAL) 6 % (2-9); SEGMENTED NEUTROPHILS % 75 % (40-70)
[2020-11-08 06:08] LABS: MAN.DIFF COMMENT-IMPRESSION MANUAL DIFFERENTIAL
[2020-11-08 06:09] LABS: PLATELET MORPHOLOGY COMMENT MARKED DECREASE
[2020-11-08 08:00] VITALS: BP 137/52
[2020-11-08] MEDS: RIFAXIMIN 550 MG TABLET PO SCH (09:10)
[2020-11-08] MEDS: FOLIC ACID 1 MG TABLET PO SCH (09:10)
[2020-11-08] MEDS: CEFTRIAXONE 1G VIAL IVP SCH (09:10)
[2020-11-08] MEDS: PROPRANOLOL HCL 20 MG TAB PO SCH (09:10)
[2020-11-08] MEDS: FUROSEMIDE 20 MG TABLET PO SCH (09:10)
[2020-11-08] MEDS: FERROUS SULFATE 325 MG TABLET.DR PO SCH ×2 (09:10→14:00)
[2020-11-08] MEDS: PANTOPRAZOLE 40 MG TAB DR PO SCH (09:11)
[2020-11-08] MEDS: LACTULOSE 20 GM/30 ML UDCUP PO SCH (09:11)
[2020-11-08] MEDS ORDERED: TAMS-1 PO (09:33)
[2020-11-08] MEDS ORDERED: AMOX-426 PO (09:33)
[2020-11-08] MEDS ORDERED: TAMSULOSIN HCL 0.4 MG CAP.ER.24H PO SCH (10:00)
[2020-11-08 12:57] VITALS: BP 120/77
[2020-11-08 16:41] VITALS: BP 107/61
[2020-11-09] MEDS ORDERED: TAMSULOSIN HCL 0.4 MG CAP.ER.24H PO SCH (21:00)
== END 2020-11-08 18:15 | DRG 871 ==
LOC: EDH 16:10 → EDHIP 18:15 → OBSVTOIN 18:15 → 3AH 23:34
PROVIDERS: ADMIT Internal Medicine; ATTEND Internal Medicine
PROC: 30233N1 Transfusion of Nonautologous Red Blood Cells into Peripheral Vein, Percutaneous Approach (ICD-10-PCS; 2020-11-03)
PROC: 0W9G3ZZ Drainage of Peritoneal Cavity, Percutaneous Approach (ICD-10-PCS; principal; 2020-11-06)
PROC: 30233R1 Transfusion of Nonautologous Platelets into Peripheral Vein, Percutaneous Approach (ICD-10-PCS; 2020-11-06)
PROC: 06L38CZ Occlusion of Esophageal Vein with Extraluminal Device, Via Natural or Artificial Opening Endoscopic (ICD-10-PCS; 2020-11-07)
DX: A41.9 Sepsis, unspecified organism (principal); K65.2 Spontaneous bacterial peritonitis; G92 Toxic encephalopathy; I85.01 Esophageal varices with bleeding; N17.9 Acute kidney failure, unspecified; R18.8 Other ascites; D61.818 Other pancytopenia; K76.6 Portal hypertension; K31.89 Other diseases of stomach and duodenum; D50.0 Iron deficiency anemia secondary to blood loss (chronic); N18.9 Chronic kidney disease, unspecified; Z20.822 Contact with and (suspected) exposure to COVID-19; R33.9 Retention of urine, unspecified; K74.60 Unspecified cirrhosis of liver; H54.8 Legal blindness, as defined in USA; J44.9 Chronic obstructive pulmonary disease, unspecified; Z91.81 History of falling; Z79.899 Other long term (current) drug therapy
CPT/HCPCS: 36415; 36430; 43244; 49083; 71045; 74176; 80048; 80053; 82140; 82270; 82550; 82607; 82728; 82948; 83735; 83874; 84484; 85014; 85018; 85025; 85027; 85610; 85730; 86850; 86900; 86901; 86923; 87071; 87205; 87426; 89051; 93005; 97039; C1729; G0378; J0696; J1200; J2704; P9016; P9034; P9046; Q0163; U0003

== ENCOUNTER 2020-11-19 09:47 | Inpatient (IN) | payer OTHER, MEDICARE ==
[~2020-11-19] VITALS: Ht 182.9 cm; Wt 85.3 kg
[2020-11-19] VITALS (10 sets, daily range): BP systolic 73–121; BP diastolic 32–60
[~2020-11-19 09:47] MED LIST changes: +AMOX-426 PO; +FERR325T22 PO; +RIFA550T PO; +TAMS-1 PO
[2020-11-19] MEDS ORDERED: 0.9%NACL 1000ML 1,000 ML IV ONE (09:54)
[2020-11-19 10:13] LABS: BASOPHILS % (AUTO) 0.6 % (0.0-5.0); EOSINOPHILS % (AUTO) 7.6 % (0.0-8.0); HEMATOCRIT 23.8 % (42-54); LYMPHOCYTES % (AUTO) 13.5 % (21.0-51.0); MEAN CORPUSCULAR HEMOGLOBIN 29.7 pg (27.0-33.0); MEAN CORPUSCULAR HGB CONC 32.4 g/dL (32.0-36.0); MEAN CORPUSCULAR VOLUME 91.9 fL (79-99); MONOCYTES % (AUTO) 6.2 % (3.0-13.0); NEUTROPHILS % (AUTO) 70.9 % (40.0-77.0); PLATELET COUNT (AUTO) 16 K/uL (130-400); RED BLOOD CELL COUNT(AUTO) 2.59 MIL/uL (4.50-6.20); RED CELL DISTRIBUTION WIDTH 16.3 % (11.0-15.5); WHITE BLOOD COUNT (AUTO) 3.4 K/uL (4.8-10.8)
[2020-11-19 10:23] LABS: INR 1.17 (0.85-1.15); PROTHROMBIN TIME 12.6 SEC (9.6-11.6)
[2020-11-19 10:25] LABS: PARTIAL THROMBOPLASTIN TIME 35.4 SEC (26.3-35.5)
[2020-11-19 10:29] LABS: ALBUMIN 2.9 g/dL (3.5-5.0); BILIRUBIN,TOTAL 0.5 mg/dL (0.2-1.0)
[2020-11-19 10:35] LABS: POTASSIUM 6.6 mmol/L (3.5-5.1)
[2020-11-19] MEDS ORDERED: CALCIUM GLUC 1GM/10ML VIAL IV ONE (10:52)
[2020-11-19] MEDS ORDERED: DEXTROSE 50%-WATER 50 ML DISP.SYRIN IV ONE (10:52)
[2020-11-19] MEDS ORDERED: SODIUM BICARB 50MEQ 50ML VIAL 50 ML ONE (10:52)
[2020-11-19] MEDS ORDERED: INSULIN HUMULIN R 100 UNIT/ML 3ML ONE (10:53)
[2020-11-19] MEDS ORDERED: ALBUTEROL 0.083% 2.5 MG/3 ML INH IH ONE (11:21)
[2020-11-19] MEDS ORDERED: MAGNESIUM 2GM PREMIX 50ML 50 ML IV PRN (11:45)
[2020-11-19] MEDS ORDERED: DEXTROSE 50%-WATER 50 ML DISP.SYRIN IV PRN (11:45)
[2020-11-19] MEDS: PANTOPRAZOLE 40 MG/VIAL IVP SCH (11:45)
[2020-11-19] MEDS ORDERED: GLUCAGON 1MG KIT 1 MG ML IM PRN (11:45)
[2020-11-19] MEDS ORDERED: SODIUM BICARB 50MEQ 50ML VIAL IV ONE (11:45)
[2020-11-19] MEDS ORDERED: DEXTROSE 50%-WATER 25 GM/50 ML VIAL IV SCH (12:30)
[2020-11-19 13:39] LABS: ALBUMIN 2.9 g/dL (3.5-5.0); BILIRUBIN,DIRECT 0.2 mg/dL (0.0-0.3); BILIRUBIN,TOTAL 0.5 mg/dL (0.2-1.0); MAGNESIUM 3.2 mg/dL (1.80-2.40); PHOSPHORUS 5.8 mg/dL (2.5-4.9); TOTAL PROTEIN, SERUM 6.8 g/dL (6.0-8.3)
[2020-11-19 13:42] LABS: POTASSIUM 6.1 mmol/L (3.5-5.1)
[2020-11-19 13:43] LABS: CREATININE 7.9 mg/dL (0.5-1.5)
[2020-11-19] MEDS ORDERED: NA ZIRCON CYCLOSIL(LOKELMA 10GM) PO SCH (14:00)
[2020-11-19] MEDS ORDERED: MIDODRINE HCL 5 MG TABLET ONE (14:07)
[2020-11-19] MEDS ORDERED: ALBUMIN (HUMAN) 25% 100 ML IV ONE (14:07)
[2020-11-19] MEDS ORDERED: KAYEXALATE 15GM/60ML ONE (14:15)
[2020-11-19] MEDS: MIDODRINE HCL 5 MG TABLET PO SCH ×2 (14:31→20:40)
[2020-11-19] MEDS ORDERED: LACTULOSE 20 GM/30 ML UDCUP PO SCH (17:00)
[2020-11-19] MEDS ORDERED: 0.9% NACL 500ML IV.SOLN 500 ML IV SCH (17:15)
[2020-11-19 18:15] LABS: HEMATOCRIT 21.2 % (42-54)
[2020-11-19] MEDS ORDERED: NOREPINEPHRIN 4MG/NS 250ML 250 ML IV SCH (18:15)
[2020-11-19] MEDS ORDERED: NOREPINEPHRIN 4MG/NS 250ML 250 ML IV ONE (18:19)
[2020-11-19 18:37] LABS: CREATININE 7.9 mg/dL (0.5-1.5); POTASSIUM 6.6 mmol/L (3.5-5.1)
[2020-11-19] MEDS ORDERED: CALCIUM GLUC 1GM/10ML VIAL IV STA (20:20)
[2020-11-19] MEDS ORDERED: DEXTROSE 50%-WATER 50 ML DISP.SYRIN IV SCH (20:20)
[2020-11-19] MEDS ORDERED: ALBUTEROL 0.083% 2.5 MG/3 ML INH IH STA (20:20)
[2020-11-19] MEDS ORDERED: SODIUM BICARB 50MEQ 50ML VIAL IV SCH (20:20)
[2020-11-19] MEDS ORDERED: FUROSEMIDE 40MG VIAL IV SCH (20:20)
[2020-11-19] MEDS ORDERED: INSULIN HUMULIN R 100 UNIT/ML 3ML IV SCH (20:20)
[2020-11-19] MEDS ORDERED: CALCIUM GLUC 1GM 1 GM in 0.9%NACL 100ML 100 ML IV SCH (20:45)
[2020-11-19 23:27] LABS: HEMATOCRIT 26.4 % (42-54)
[2020-11-19 23:42] LABS: POTASSIUM 5.7 mmol/L (3.5-5.1)
[2020-11-19 23:47] LABS: CREATININE 8.2 mg/dL (0.5-1.5)
[2020-11-20] VITALS (17 sets, daily range): BP systolic 84–143; BP diastolic 39–79
[2020-11-20 03:55] LABS: HEMATOCRIT 26.5 % (42-54); MEAN CORPUSCULAR HEMOGLOBIN 29.8 pg (27.0-33.0); MEAN CORPUSCULAR HGB CONC 32.5 g/dL (32.0-36.0); MEAN CORPUSCULAR VOLUME 91.7 fL (79-99); RED BLOOD CELL COUNT(AUTO) 2.89 MIL/uL (4.50-6.20); WHITE BLOOD COUNT (AUTO) 5.6 K/uL (4.8-10.8)
[2020-11-20 04:09] LABS: ALBUMIN 3.2 g/dL (3.5-5.0); BILIRUBIN,TOTAL 0.8 mg/dL (0.2-1.0); TOTAL PROTEIN, SERUM 7.2 g/dL (6.0-8.3)
[2020-11-20 04:15] LABS: POTASSIUM 6.3 mmol/L (3.5-5.1)
[2020-11-20 04:16] LABS: CREATININE 8.2 mg/dL (0.5-1.5)
[2020-11-20] MEDS ORDERED: INSULIN HUMULIN R 100 UNIT/ML 3ML SQ SCH (05:00)
[2020-11-20] MEDS ORDERED: CALCIUM GLUC 1GM 1 GM in 0.9%NACL 100ML 100 ML IV SCH (05:00)
[2020-11-20] MEDS ORDERED: SODIUM BICARB 8.4% 50ML SYRINGE IVP SCH (05:00)
[2020-11-20] MEDS ORDERED: DEXTROSE 50%-WATER 25 GM/50 ML VIAL IV SCH (05:00)
[2020-11-20] MEDS ORDERED: LORAZEPAM 2 MG/ML 1 ML VIAL ONE ×2 (05:24→17:13)
[2020-11-20] MEDS ORDERED: SODIUM BICARB 50MEQ 50ML VIAL 50 ML ONE (05:30)
[2020-11-20] MEDS ORDERED: CALCIUM GLUC 1GM/10ML VIAL IV ONE (05:31)
[2020-11-20] MEDS ORDERED: 0.9%NACL 100ML 100 ML IV ONE (05:33)
[2020-11-20] MEDS: MIDODRINE HCL 5 MG TABLET PO SCH ×4 (09:00→21:00)
[2020-11-20] MEDS: PANTOPRAZOLE 40 MG/VIAL IVP SCH (09:07)
[2020-11-20] MEDS ORDERED: LORAZEPAM 2 MG/ML 1 ML VIAL IVP ONE (12:28)
[2020-11-20] MEDS ORDERED: LORAZEPAM 2 MG/ML 1 ML VIAL IM ONE (13:40)
[2020-11-20] MEDS ORDERED: CALCIUM GLUC 1GM/10ML VIAL IV SCH (14:10)
[2020-11-20] MEDS ORDERED: KAYEXALATE 15GM/60ML PO SCH (14:10)
[2020-11-20] MEDS ORDERED: SODIUM BICARB 50MEQ 50ML VIAL IV SCH (14:10)
[2020-11-20 16:07] LABS: POTASSIUM 5.7 mmol/L (3.5-5.1)
[2020-11-20 16:16] LABS: CREATININE 8.6 mg/dL (0.5-1.5)
[2020-11-20] MEDS ORDERED: LORAZEPAM 2 MG/ML 1 ML VIAL IM SCH (17:47)
[2020-11-21] VITALS (18 sets, daily range): BP systolic 95–134; BP diastolic 38–84
[2020-11-21 03:53] LABS: HEMATOCRIT 26.7 % (42-54); MEAN CORPUSCULAR HEMOGLOBIN 29.1 pg (27.0-33.0); MEAN CORPUSCULAR HGB CONC 31.5 g/dL (32.0-36.0); MEAN CORPUSCULAR VOLUME 92.4 fL (79-99); NUCLEATED RED BLOOD CELLS 0.2 % (0.0-0.19); RED BLOOD CELL COUNT(AUTO) 2.89 MIL/uL (4.50-6.20); RED CELL DISTRIBUTION WIDTH 16.3 % (11.0-15.5); WHITE BLOOD COUNT (AUTO) 8.4 K/uL (4.8-10.8)
[2020-11-21 04:19] LABS: CREATININE 9.2 mg/dL (0.5-1.5); POTASSIUM 6.6 mmol/L (3.5-5.1)
[2020-11-21] MEDS ORDERED: CALCIUM GLUC 1GM 1 GM in 0.9%NACL 100ML 100 ML IV SCH (05:00)
[2020-11-21] MEDS ORDERED: INSULIN HUMULIN R 100 UNIT/ML 3ML IV ONE (05:00)
[2020-11-21] MEDS ORDERED: KAYEXALATE 15GM/60ML RC ONE (05:00)
[2020-11-21] MEDS ORDERED: DEXTROSE 50%-WATER 25 GM/50 ML VIAL IV ONE (05:00)
[2020-11-21] MEDS ORDERED: SODIUM BICARB 8.4% 50ML SYRINGE IVP ONE (05:00)
[2020-11-21] MEDS ORDERED: CALCIUM GLUC 1GM/10ML VIAL IV ONE (05:21)
[2020-11-21] MEDS ORDERED: SODIUM BICARB 50MEQ 50ML VIAL 50 ML ONE (05:21)
[2020-11-21] MEDS ORDERED: KAYEXALATE 15GM/60ML ONE (05:22)
[2020-11-21] MEDS ORDERED: 0.9%NACL 10ML VIAL ONE (05:22)
[2020-11-21] MEDS: PANTOPRAZOLE 40 MG/VIAL IVP SCH (08:22)
[2020-11-21] MEDS: MIDODRINE HCL 5 MG TABLET PO SCH ×3 (08:22→21:00)
[2020-11-21] MEDS ORDERED: MORPHINE 2 MG SYG IVP PRN (11:00)
[2020-11-21] MEDS ORDERED: LORAZEPAM 2 MG/ML 1 ML VIAL IVP PRN (11:00)
[2020-11-21] MEDS: HALOPERIDOL INJ 5 MG/ML VIAL IM PRN ×2 (12:20→22:32)
[2020-11-22] VITALS: BP 117/59
[2020-11-22 04:00] VITALS: BP 119/49
[2020-11-22 09:18] VITALS: BP 116/63
[2020-11-22] MEDS: MIDODRINE HCL 5 MG TABLET PO SCH ×2 (10:10→14:00)
[2020-11-22] MEDS: PANTOPRAZOLE 40 MG/VIAL IVP SCH (10:10)
[2020-11-22 12:00] VITALS: BP 108/57
== END 2020-11-22 14:12 | disposition hospice, inpatient (51) | DRG 441 ==
LOC: EDH 09:47 → EDHIP 11:31 → 2DH 15:01 → 2CH 11-22 06:42
PROVIDERS: ADMIT Internal Medicine Pulmonary Disease; ATTEND Internal Medicine Pulmonary Disease
PROC: 30233R1 Transfusion of Nonautologous Platelets into Peripheral Vein, Percutaneous Approach (ICD-10-PCS; principal; 2020-11-19)
PROC: 30233N1 Transfusion of Nonautologous Red Blood Cells into Peripheral Vein, Percutaneous Approach (ICD-10-PCS; 2020-11-19)
DX: K72.00 Acute and subacute hepatic failure without coma (principal); N18.6 End stage renal disease; K76.7 Hepatorenal syndrome; K62.5 Hemorrhage of anus and rectum; N17.9 Acute kidney failure, unspecified; R18.8 Other ascites; I12.0 Hypertensive chronic kidney disease with stage 5 chronic kidney disease or end stage renal disease; D68.9 Coagulation defect, unspecified; E87.2 Acidosis; Z66 Do not resuscitate; Z51.5 Encounter for palliative care; E87.5 Hyperkalemia; K74.60 Unspecified cirrhosis of liver; R29.6 Repeated falls; E11.22 Type 2 diabetes mellitus with diabetic chronic kidney disease; K72.10 Chronic hepatic failure without coma; D69.6 Thrombocytopenia, unspecified; J44.9 Chronic obstructive pulmonary disease, unspecified; I25.10 Atherosclerotic heart disease of native coronary artery without angina pectoris; H54.8 Legal blindness, as defined in USA; E87.6 Hypokalemia; R16.1 Splenomegaly, not elsewhere classified; E11.649 Type 2 diabetes mellitus with hypoglycemia without coma; Z20.822 Contact with and (suspected) exposure to COVID-19; Z91.81 History of falling; Z79.899 Other long term (current) drug therapy
CPT/HCPCS: 36415; 71045; 74176; 80048; 80053; 80076; 82140; 82270; 82550; 82947; 82948; 83605; 83690; 83735; 83880; 84100; 84484; 85014; 85018; 85025; 85027; 85610; 85730; 86850; 86900; 86901; 86923; 87040; 87077; 87186; 87426; 92610; 93005; 94640; 99291; C9113; G0378; J0610; J1630; J1815; J1940; J2060; J3490; J7030; J7070; P9016; P9034; P9046; U0003

== ENCOUNTER 2020-11-22 14:13 | Inpatient (IN) | payer OTHER ==
[~2020-11-22] VITALS: Ht 182.9 cm; Wt 85.3 kg
[2020-11-22] MEDS ORDERED: ACETAMINOPHEN 650 MG SUPPOSITORY RC PRN (19:15)
[2020-11-22] MEDS ORDERED: LORAZEPAM 2 MG/ML 1 ML VIAL IVP PRN (19:15)
[2020-11-22] MEDS ORDERED: BISACODYL 10 MG SUPP.RECT RC PRN (19:15)
[2020-11-22] MEDS ORDERED: HALOPERIDOL INJ 5 MG/ML VIAL IM PRN (19:15)
[2020-11-22 20:38] VITALS: BP 115/58
[2020-11-22] MEDS: MIDODRINE HCL 5 MG TABLET PO SCH (21:08)
[2020-11-23 08:38] VITALS: BP 134/68
[2020-11-23] MEDS: MIDODRINE HCL 5 MG TABLET PO SCH ×2 (13:48→22:34)
[2020-11-23 19:12] VITALS: BP 101/56
[2020-11-24] MEDS: MIDODRINE HCL 5 MG TABLET PO SCH ×3 (10:19→22:14)
[2020-11-24 16:00] VITALS: BP 147/87
[2020-11-24] MEDS: MORPHINE 2 MG SYG IVP PRN (19:42)
[2020-11-24 22:15] VITALS: BP 113/68
[2020-11-25] MEDS: MIDODRINE HCL 5 MG TABLET PO SCH ×3 (09:48→21:00)
[2020-11-25 16:00] VITALS: BP 124/72
[2020-11-25] MEDS ORDERED: ACETAMINOPHEN 325 MG TAB PO PRN (21:45)
[2020-11-26 06:15] LABS: POTASSIUM 5.9 mmol/L (3.5-5.1)
[2020-11-26 06:24] LABS: CREATININE 12.1 mg/dL (0.5-1.5)
[2020-11-26] MEDS ORDERED: CALCIUM GLUC 1GM/10ML VIAL IV SCH (06:45)
[2020-11-26] MEDS ORDERED: ALBUTEROL 0.083% 2.5 MG/3 ML INH IH ONE (07:01)
[2020-11-26] MEDS ORDERED: DEXTROSE 50%-WATER 50 ML DISP.SYRIN IV SCH (07:27)
[2020-11-26] MEDS ORDERED: INSULIN HUMULIN R 100 UNIT/ML 3ML IV SCH (07:28)
[2020-11-26] MEDS ORDERED: FUROSEMIDE 40MG VIAL IV SCH (07:28)
[2020-11-26] MEDS ORDERED: KAYEXALATE 15GM/60ML PO SCH (07:29)
[2020-11-26] MEDS ORDERED: SODIUM BICARB 8.4% 50ML SYRINGE IVP SCH (07:29)
[2020-11-26] MEDS ORDERED: ALBUTEROL 0.083% 2.5 MG/3 ML INH IH SCH (07:30)
[2020-11-26] MEDS ORDERED: CALCIUM GLUC 1GM 1 GM in 0.9%NACL 100ML 100 ML IV SCH (07:45)
[2020-11-26 08:00] VITALS: BP 99/61
[2020-11-26] MEDS: MIDODRINE HCL 5 MG TABLET PO SCH ×2 (09:30→13:58)
[2020-11-26 20:00] VITALS: BP 142/70
[2020-11-27 08:00] VITALS: BP 134/82
[2020-11-27] MEDS: MORPHINE 2 MG SYG IVP PRN (13:34)
[2020-11-27 20:04] VITALS: BP 137/81
[2020-11-28 08:00] VITALS: BP 127/60
== END 2020-11-28 12:10 | disposition hospice, home (50) | DRG 871 ==
LOC: UNDODISIN 14:13 → 2CH 14:13 → 3CH 17:50 → 3AH 22:31
PROVIDERS: ADMIT Internal Medicine Pulmonary Disease; ATTEND Internal Medicine Pulmonary Disease
DX: A41.9 Sepsis, unspecified organism (principal); K76.7 Hepatorenal syndrome; N17.9 Acute kidney failure, unspecified; K62.5 Hemorrhage of anus and rectum; N18.9 Chronic kidney disease, unspecified; E87.5 Hyperkalemia; Z51.5 Encounter for palliative care; I12.9 Hypertensive chronic kidney disease with stage 1 through stage 4 chronic kidney disease, or unspecified chronic kidney disease; R65.20 Severe sepsis without septic shock; K72.90 Hepatic failure, unspecified without coma; D69.6 Thrombocytopenia, unspecified; Z66 Do not resuscitate; Z79.899 Other long term (current) drug therapy
CPT/HCPCS: 36415; 80048; 94644; G0378; J0610; J1815; J1940; J3490; J7070